=== PATIENT | male | born 1985 | race Caucasian/White ===

== ENCOUNTER 2020-05-14 11:20 | Outpatient (CLI) | payer SELFPAY ==
--- NOTE | 2020-05-14 11:24 | MR_ITS ---
WS: [id number] MRI LUMBAR SPINE NONCONTRAST HISTORY: RADICULOPATHY LUMBOSACRAL REGION COMPARISON: None available. TECHNIQUE: Sagittal and axial multisequence imaging is submitted. Normal lumbar alignment with no compression fractures or marrow edema. Mild disc desiccation and narrowing at L5-S1. No fracture or marrow edema. Conus terminates normally at L1. L1-L2: Normal. L2-L3: Normal. L3-L4: Very mild bilateral foraminal narrowing. Mild facet joint arthritis. L4-L5: Mild bilateral foraminal narrowing. No central disc protrusion. L5-S1: Central to RIGHT paracentral moderate-sized disc protrusion contacting the RIGHT S1 nerve root . Disc extends inferiorly into the lateral recess. Contact and deformity of the RIGHT lateral thecal sac. Additional osteophytic ridging. Moderate bilateral foraminal stenosis. MR/MR lumbar spine wo con* [id number] IMPRESSION: 1. Moderate RIGHT paracentral and RIGHT lateral recess disc protrusion/extrusi on at L5-S1 with contact and deformity of the RIGHT lateral thecal sac and disp lacement of the RIGHT S1 nerve root. 2. Moderate bilateral foraminal stenosis at L5-S1. 3. Mild bilateral foraminal narrowing at L3-4 and L4-5 may be due to short ped icles.
== END 2020-05-14 11:21 | disposition home or self-care (01) ==
LOC: RADSHAW 11:23
PROVIDERS: PCP Nurse Practitioner; Visit Provider Nurse Practitioner
DX: M54.17 Radiculopathy, lumbosacral region (principal); R20.2 Paresthesia of skin; M79.604 Pain in right leg; M51.27 Other intervertebral disc displacement, lumbosacral region; M48.07 Spinal stenosis, lumbosacral region
CPT/HCPCS: 72148

== ENCOUNTER 2020-07-21 16:08 | Emergency (ER) | payer SELFPAY ==
[2020-07-21] VITALS (9 sets, daily range): BP systolic 119–142; BP diastolic 68–93; PULSE 105–115; RESP 19–26; TEMP 36.7; O2SAT 94–99; BMI 24.6
--- NOTE | 2020-07-21 16:26 | W.ED.CHESTPA ---
Documented by User: Cholo Rodriguez DO 07/21/20 18:08 HPI - Chest Pain General: Chief Complaint: Chest Pain Stated Complaint: CHEST PAIN/SOB (COUGH) Time Seen by Provider: 07/21/20 16:17 History of Present Illness: HPI narrative: 35-year-old male presents to the emergency room complaining of intermittent substernal chest pain. Pain changes worse when he sits up or when he takes a deep breath also worsened by palpation. He has had this progressively worsening for the last week with increasing productive yellow sputum. He had a fever early on that resolved he denies any nausea or vomiting or diarrhea no anosmia. He has no history of any chronic respiratory illnesses unfortunately is an insulin-dependent diabetic. MD complaint: chest pain Pertinent past history: other (Diabetes mellitus) Onset (ago): week(s) (1) Timing of current episode: constant Prior episodes: Yes Onset: during rest Pain location: substernal Pain radiation: none Severity: severe Quality: heaviness Relieving factors: remaining still and other (Laying supine) Exacerbating factors: other (Sitting up or coughing or exerting) Context: recent illness Associated symptoms: Reports dyspnea and fever(s); Deny abdominal pain, diaphoresis, leg edema, nausea, palpitations, sense of impending doom, syncope or vomiting Treatment prior to arrival: none Review of Systems Const: Reports: fever(s); Denies: diaphoresis ENMT: Denies: throat pain, ear or mastoid pain, nasal discharge or nasal congestion Card: Denies: palpitations or syncope Resp: Reports: dyspnea GI: Denies: abdominal pain, nausea or vomiting : Denies: flank pain, dysuria, urinary frequency or urinary urgency Skin/Breast: Denies: rash or pruritus PFS ED PFSH: Medical History (Updated 07/21/20 @ 20:13 by Raj Gonzalez DO) Type 1 diabetes mellitus Physical Exam Const: COMMON NORMALS: no acute distress GENERAL APPEARANCE: cooperative and comfortable ORIENTATION/CONSCIOUSNESS: Yes awake, Yes oriented to person, Yes oriented to place and Yes oriented to time HENMT: COMMON NORMALS: normocephalic, atraumatic and hearing grossly normal bilaterally HEAD & SCALP: normocephalic and atraumatic Neck/C-Spine: COMMON NORMALS: no JVD Resp: COMMON NORMALS: normal respiratory effort, No retractions, No use of accessory muscles and clear to auscultation bilaterally AUSCULTATION: clear to auscultation bilaterally Cardio: COMMON NORMALS: no JVD, regular rate, regular rhythm and No murmurs present (Cardio) RATE: regular rate RHYTHM: regular rhythm GI: COMMON NORMALS: Soft to palpation and No hepatosplenomegaly present AUSCULTATION: Yes normoactive bowel sounds PALPATION: Yes Soft to palpation, No Tenderness to palpation present (GI), No Guarding due to palpation present (GI) and Yes No hepatosplenomegaly present Extremity: COMMON NORMALS: normal to inspection, capillary refill normal, no clubbing, cyanosis or edema, no calf tenderness and no pedal edema Neuro: SENSORIUM/ORIENTATION: Yes oriented to person, Yes oriented to place and Yes oriented to time Skin: COMMON NORMALS: no rashes or lesions noted GENERAL SKIN EXAM: no rashes or lesions noted Course Vital Signs: Vital signs: Vital Signs Temperature 98.1 F 07/21/20 20:45 Pulse Rate 106 H 07/21/20 20:45 Respiratory Rate 19 H 07/21/20 20:45 Blood Pressure 140/85 07/21/20 20:45 Pulse Oximetry 96 07/21/20 20:45 MDM - Chest Pain MDM Narrative: Medical decision making narrative: Care turned over to Dr. Gonzalez at change of shift see his note for final diagnosis and disposition Lab Data: Labs: Lab Results 07/21/20 07/21/20 07/21/20 Range/Units 16:30 16:30 16:30 WBC 11.3 H (4.0-10.0) 10^3/ uL RBC 3.46 L (4.1-5.3) 10^6/u L Hgb 13.6 (11.7-16.6) g/dL Hct 32.4 L (42.0-52.0) % MCV 93.6 (80-94) fL MCH 39.3 H (28.0-34.0) pg MCHC 42.0 H (30.0-36.0) g/dL RDW 13.2 (12.1-15.1) % Plt Count 349 (130-400) 10^3/c mm MPV 12.6 H (7.4-10.4) fL Neut % (Auto) 72.2 % Lymph % (Auto) 20.9 % [place] % (Auto) 5.7 % Eos % (Auto) 0.1 % Baso % (Auto) 0.7 % Neut # (Auto) 8.18 H (1.8-7.7) 10^3/u L Lymph # (Auto) 2.4 (0.8-4.8) 10^3/u L [place] # (Auto) 0.6 (0.2-0.9) 10^3/u L Eos # (Auto) 0.0 (0.0-0.8) 10^3/u L Baso # (Auto) 0.1 (0.0-0.1) 10^3/u L Nucleated RBC % (a uto) 0 % Nucleated RBCs # 0.0 /100WBC Sodium 134 L (136-145) mmol/L Potassium 4.3 (3.5-5.1) mmol/L Chloride 96 L (98-107) mmol/L Carbon Dioxide 22 (22-29) mmol/L Anion Gap 20.3 H (5-19) BUN 12 (6-20) mg/dL Creatinine 0.8 (0.7-1.2) mg/dL GFR Calculation 109.4 (90-130) mL/min Glucose 141 H (65-115) mg/dL Calculated Osmolal ity 280 L (285-295) mOsm/k g Lactic Acid 1.6 (0.5-2.2) mmol/L Calcium 10.0 (8.5-10.5) mg/dL Total Bilirubin 0.2 (0.15-1.2) mg/dL AST 15 (0-40) U/L ALT 13 (0-41) U/L Alkaline Phosphata se 136 H (40-130) IU/L Creatine Kinase 152 (39-308) U/L Troponin T Gen 5 n g/L (0-15) ng/L C-Reactive Protein 149.6 H (0.0-4.9) mg/L Total Protein 7.8 (6.6-8.7) g/dL Albumin 3.9 (3.5-5.2) g/dL Globulin 3.9 (1.3-4.6) g/dL SARS-CoV-2 Ag (Rap id) (Negative) 07/21/20 07/21/20 Range/Units 16:30 18:37 WBC (4.0-10.0) 10^3/ uL RBC (4.1-5.3) 10^6/u L Hgb (11.7-16.6) g/dL Hct (42.0-52.0) % MCV (80-94) fL MCH (28.0-34.0) pg MCHC (30.0-36.0) g/dL RDW (12.1-15.1) % Plt Count (130-400) 10^3/c mm MPV (7.4-10.4) fL Neut % (Auto) % Lymph % (Auto) % [place] % (Auto) % Eos % (Auto) % Baso % (Auto) % Neut # (Auto) (1.8-7.7) 10^3/u L Lymph # (Auto) (0.8-4.8) 10^3/u L [place] # (Auto) (0.2-0.9) 10^3/u L Eos # (Auto) (0.0-0.8) 10^3/u L Baso # (Auto) (0.0-0.1) 10^3/u L Nucleated RBC % (a uto) % Nucleated RBCs # /100WBC Sodium (136-145) mmol/L Potassium (3.5-5.1) mmol/L Chloride (98-107) mmol/L Carbon Dioxide (22-29) mmol/L Anion Gap (5-19) BUN (6-20) mg/dL Creatinine (0.7-1.2) mg/dL GFR Calculation (90-130) mL/min Glucose (65-115) mg/dL Calculated Osmolal ity (285-295) mOsm/k g Lactic Acid (0.5-2.2) mmol/L Calcium (8.5-10.5) mg/dL Total Bilirubin (0.15-1.2) mg/dL AST (0-40) U/L ALT (0-41) U/L Alkaline Phosphata se (40-130) IU/L Creatine Kinase (39-308) U/L Troponin T Gen 5 n g/L 34 H (0-15) ng/L C-Reactive Protein (0.0-4.9) mg/L Total Protein (6.6-8.7) g/dL Albumin (3.5-5.2) g/dL Globulin (1.3-4.6) g/dL SARS-CoV-2 Ag (Rap id) Negative (Negative) Discharge Plan Discharge Patient Disposition: Home Clinical Impression: Pneumonia Qualifiers: Pneumonia type: due to unspecified organism Laterality: bilateral Lung location: unspecified part of lung Qualified Code(s): J18.9 - Pneumonia, unspecified organism Condition: Stable Prescriptions: New levofloxacin 750 mg tablet 750 mg PO DAILY Qty: 7 RF: 0 albuterol sulfate 90 mcg/actuation HFA aerosol inhaler 2 inh INHALATION Q4H PRN (Reason: shortness of breath or wheezing) Qty: 6.7 RF: 1 No Action Novolin R Regular U-100 Insuln 100 unit/mL Solution See Rx Instructions .ROUTE .COMPLEX RF: 0 Novolin N NPH U-100 Insulin 25 unit SUBCUT BID@[id number] RF: 0 Discharge Orders: Discharge ED (Routine); Ordered 07/21/20 Ordered By: Raj Gonzalez Referrals: Manuel Galvez FNP [Primary Care Provider] - 4-7 days Discharge Diet: Diabetic Discharge Activity: Limit activity as instructed Patient Instructions: Pneumonia (ED) Activity Restrictions/Additional Instructions: You should continue to quarantine at home until the final results of your Covid test comes back. Antibiotics as directed. Check your blood sugar often the next 48 hours in particular, as medication we gave you may increase your blood sugar. Return for worsening shortness of breath despite treatment, fever despite 2-3 doses of antibiotics, vomiting liquids or medications, other concerning symptoms. Coding Level of Care Code ED Renovation Plant Supervisor for Chg Fwd Exam Comprehensive Documented by User: Raj Gonzalez, 07/22/20 00:31 HPI - Chest Pain General: Chief Complaint: Chest Pain Stated Complaint: CHEST PAIN/SOB (COUGH) Time Seen by Provider: 07/21/20 16:17 PFSH ED PFSH: Medical History (Updated 07/21/20 @ 20:13 by Raj Gonzalez DO) Type 1 diabetes mellitus Course Vital Signs: Vital signs: Vital Signs Temperature 98.1 F 07/21/20 20:45 Pulse Rate 106 H 07/21/20 20:45 Respiratory Rate 19 H 07/21/20 20:45 Blood Pressure 140/85 07/21/20 20:45 Pulse Oximetry 96 07/21/20 20:45 MDM - Chest Pain MDM Narrative: Medical decision making narrative: 35-year-old male checked out to me by Dr. Rodriguez at shift change. This patient is an insulin-dependent diabetic with cough that is productive and shortness of breath. No fever. His chest x-ray showed atypical infiltrates. CTA shows atypical infiltrates as well. However, these are not common types of infiltrates for COVID-19. It may be an atypical pneumonia. His white blood cell count is 11.3. He is not oxygen dependent. His heart rate is 100. Saturation is 94%. Blood pressure 124/72. He will be allowed discharge with coverage for atypical pneumonia. He will not be given steroids, as he is an insulin-dependent diabetic. He will be given 1 dose here. His rapid Covid is negative. PCR is pending. Lab Data: Labs: Lab Results 07/21/20 07/21/20 07/21/20 Range/Units 16:30 16:30 16:30 WBC 11.3 H (4.0-10.0) 10^3/ uL RBC 3.46 L (4.1-5.3) 10^6/u L Hgb 13.6 (11.7-16.6) g/dL Hct 32.4 L (42.0-52.0) % MCV 93.6 (80-94) fL MCH 39.3 H (28.0-34.0) pg MCHC 42.0 H (30.0-36.0) g/dL RDW 13.2 (12.1-15.1) % Plt Count 349 (130-400) 10^3/c mm MPV 12.6 H (7.4-10.4) fL Neut % (Auto) 72.2 % Lymph % (Auto) 20.9 % [place] % (Auto) 5.7 % Eos % (Auto) 0.1 % Baso % (Auto) 0.7 % Neut # (Auto) 8.18 H (1.8-7.7) 10^3/u L Lymph # (Auto) 2.4 (0.8-4.8) 10^3/u L [place] # (Auto) 0.6 (0.2-0.9) 10^3/u L Eos # (Auto) 0.0 (0.0-0.8) 10^3/u L Baso # (Auto) 0.1 (0.0-0.1) 10^3/u L Nucleated RBC % (a uto) 0 % Nucleated RBCs # 0.0 /100WBC Sodium 134 L (136-145) mmol/L Potassium 4.3 (3.5-5.1) mmol/L Chloride 96 L (98-107) mmol/L Carbon Dioxide 22 (22-29) mmol/L Anion Gap 20.3 H (5-19) BUN 12 (6-20) mg/dL Creatinine 0.8 (0.7-1.2) mg/dL GFR Calculation 109.4 (90-130) mL/min Glucose 141 H (65-115) mg/dL Calculated Osmolal ity 280 L (285-295) mOsm/k g Lactic Acid 1.6 (0.5-2.2) mmol/L Calcium 10.0 (8.5-10.5) mg/dL Total Bilirubin 0.2 (0.15-1.2) mg/dL AST 15 (0-40) U/L ALT 13 (0-41) U/L Alkaline Phosphata se 136 H (40-130) IU/L Creatine Kinase 152 (39-308) U/L Troponin T Gen 5 n g/L (0-15) ng/L C-Reactive Protein 149.6 H (0.0-4.9) mg/L Total Protein 7.8 (6.6-8.7) g/dL Albumin 3.9 (3.5-5.2) g/dL Globulin 3.9 (1.3-4.6) g/dL SARS-CoV-2 Ag (Rap id) (Negative) 07/21/20 07/21/20 Range/Units 16:30 18:37 WBC (4.0-10.0) 10^3/ uL RBC (4.1-5.3) 10^6/u L Hgb (11.7-16.6) g/dL Hct (42.0-52.0) % MCV (80-94) fL MCH (28.0-34.0) pg MCHC (30.0-36.0) g/dL RDW (12.1-15.1) % Plt Count (130-400) 10^3/c mm MPV (7.4-10.4) fL Neut % (Auto) % Lymph % (Auto) % [place] % (Auto) % Eos % (Auto) % Baso % (Auto) % Neut # (Auto) (1.8-7.7) 10^3/u L Lymph # (Auto) (0.8-4.8) 10^3/u L [place] # (Auto) (0.2-0.9) 10^3/u L Eos # (Auto) (0.0-0.8) 10^3/u L Baso # (Auto) (0.0-0.1) 10^3/u L Nucleated RBC % (a uto) % Nucleated RBCs # /100WBC Sodium (136-145) mmol/L Potassium (3.5-5.1) mmol/L Chloride (98-107) mmol/L Carbon Dioxide (22-29) mmol/L Anion Gap (5-19) BUN (6-20) mg/dL Creatinine (0.7-1.2) mg/dL GFR Calculation (90-130) mL/min Glucose (65-115) mg/dL Calculated Osmolal ity (285-295) mOsm/k g Lactic Acid (0.5-2.2) mmol/L Calcium (8.5-10.5) mg/dL Total Bilirubin (0.15-1.2) mg/dL AST (0-40) U/L ALT (0-41) U/L Alkaline Phosphata se (40-130) IU/L Creatine Kinase (39-308) U/L Troponin T Gen 5 n g/L 34 H (0-15) ng/L C-Reactive Protein (0.0-4.9) mg/L Total Protein (6.6-8.7) g/dL Albumin (3.5-5.2) g/dL Globulin (1.3-4.6) g/dL SARS-CoV-2 Ag (Rap id) Negative (Negative) Discharge Plan Discharge Patient Disposition: Home Clinical Impression: Pneumonia Qualifiers: Pneumonia type: due to unspecified organism Laterality: bilateral Lung location: unspecified part of lung Qualified Code(s): J18.9 - Pneumonia, unspecified organism Condition: Stable Prescriptions: New levofloxacin 750 mg tablet 750 mg PO DAILY Qty: 7 RF: 0 albuterol sulfate 90 mcg/actuation HFA aerosol inhaler 2 inh INHALATION Q4H PRN (Reason: shortness of breath or wheezing) Qty: 6.7 RF: 1 No Action Novolin R Regular U-100 Insuln 100 unit/mL Solution See Rx Instructions .ROUTE .COMPLEX RF: 0 Novolin N NPH U-100 Insulin 25 unit SUBCUT BID@ RF: 0 Discharge Orders: Discharge ED (Routine); Ordered 07/21/20 Ordered By: Raj Gonzalez Referrals: Manuel Galvez FNP [Primary Care Provider] - 4-7 days Discharge Diet: Diabetic Discharge Activity: Limit activity as instructed Patient Instructions: Pneumonia (ED) Activity Restrictions/Additional Instructions: You should continue to quarantine at home until the final results of your Covid test comes back. Antibiotics as directed. Check your blood sugar often the next 48 hours in particular, as medication we gave you may increase your blood sugar. Return for worsening shortness of breath despite treatment, fever despite 2-3 doses of antibiotics, vomiting liquids or medications, other concerning symptoms. Coding Level of Care Code ED Renovation Plant Supervisor for Adriana Fwjay Exam Comprehensive
--- NOTE | 2020-07-21 16:28 | XRR_ITS ---
PROCEDURE INFORMATION: Exam: XR Chest, 1 View Exam date and time: 07/21/2020 4:30 PM Age: 35 years old Clinical indication: Dyspnea TECHNIQUE: Imaging protocol: XR of the chest Views: 1 view. COMPARISON: No relevant prior studies available. FINDINGS: Lungs: Mild nonspecific ground-glass densities at the lung bases, right worse than left. The upper lungs are clear. Pleural space: No pleural effusion. No pneumothorax. Heart/Mediastinum: No cardiomegaly. Bones/joints: Unremarkable. XR/XR chest 1V portable [id number] IMPRESSION: 1. Mild nonspecific ground-glass densities at the lung bases, right worse than left. 2. The upper lungs are clear.
[2020-07-21 17:05] LABS: Lactic Sepsis W/Reflex 1.6 mmol/L (0.5-2.2)
[2020-07-21 17:06] LABS: Basophils # 0.1 10^3/uL (0.0-0.1); Basophils % 0.7 %; Eosinophils % 0.1 %; Hematocrit 32.4 % (42.0-52.0); Hemoglobin 13.6 g/dL (11.7-16.6); Lymphocytes # 2.4 10^3/uL (0.8-4.8); Lymphocytes % 20.9 %; Mean Corpuscular Hemoglobin 39.3 pg (28.0-34.0); Mean Corpuscular Volume 93.6 fL (80-94); Mean Platelet Volume 12.6 fL (7.4-10.4); Monocytes # 0.6 10^3/uL (0.2-0.9); Monocytes % 5.7 %; Neutrophils # 8.18 10^3/uL (1.8-7.7); Neutrophils % 72.2 %; Nucleated Red Blood Cells % 0 %; Platelet Count 349 10^3/cmm (130-400); Positive C 1; Red Blood Count 3.46 10^6/uL (4.1-5.3); Red Cell Distribution Width 13.2 % (12.1-15.1); White Blood Count 11.3 10^3/uL (4.0-10.0)
[2020-07-21 17:10] LABS: Alanine Aminotransferase 13 U/L (0-41); Albumin Level 3.9 g/dL (3.5-5.2); Alkaline Phosphatase 136 IU/L (40-130); Anion Gap 20.3 (5-19); Aspartate Amino Transferase 15 U/L (0-40); Blood Urea Nitrogen 12 mg/dL (6-20); C Reactive Protein 149.6 mg/L (0.0-4.9); Carbon Dioxide 22 mmol/L (22-29); Chloride 96 mmol/L (98-107); Creatine Phosphokinase 152 U/L (39-308); Globulin 3.9 g/dL (1.3-4.6); Glomerular Filtration Rate 109.4 mL/min (90-130); Glucose 141 mg/dL (65-115); Osmolality Calculated 280 mOsm/kg (285-295); Potassium 4.3 mmol/L (3.5-5.1); Sodium 134 mmol/L (136-145); Total Bilirubin 0.2 mg/dL (0.15-1.2); Total Protein 7.8 g/dL (6.6-8.7)
--- NOTE | 2020-07-21 18:06 | CTR_ITS ---
PROCEDURE INFORMATION: Exam: CT Angiography Chest With Contrast Exam date and time: 07/21/2020 6:10 PM Age: 35 years old Clinical indication: Sternal or substernal pain; Patient HX: C/O intermittent substernal cp w cough; Additional info: Chest pain TECHNIQUE: Imaging protocol: Computed tomographic angiography of the chest with intravenous contrast. 3D rendering (Not supervised by radiologist): MIP and/or 3D reconstructed images were created by the technologist. Radiation optimization: All CT scans at this facility use at least one of these dose optimization techniques: automated exposure control; mA and/or kV adjustment per patient size (includes targeted exams where dose is matched to clinical indication); or iterative reconstruction. Contrast material: OMNI 350; Contrast volume: 60 ml; Contrast route: INTRAVENOUS (IV); COMPARISON: CR (CHEST, ) 07/21/2020 4:33 PM RADIATION DOSE METRICS: Total DLP (mGy-cm): 537.72 FINDINGS: Pulmonary arteries: Pulmonary arteries are well opacified. Pulmonary arteries are normal in caliber. No filling defects are demonstrated. No evidence of pulmonary embolism. Aorta: The thoracic aorta appears unremarkable. No aneurysm or dissection demonstrated. Lungs: Mild bronchiectasis in the lower lobes. Nonspecific diffuse tree-in-bud infiltrates seen in the right middle lobe and bilateral lower lobes. Pleural space: No pneumothorax. No pleural effusion. Heart: No cardiomegaly. No pericardial effusion. Lymph nodes: Mild nonspecific mediastinal and bilateral hilar nodes. Mediastinal nodes measure up to 12 mm short axis. Hilar nodes measure up to 13 mm in length. Bones/joints: No fracture or other acute osseous abnormality. Soft tissues: The soft tissues appear unremarkable. CT/CT angio chest PE protcl [id number] IMPRESSION: 1. No evidence of pulmonary embolism. 2. No evidence of aortic dissection. 3. Mild bronchiectasis in the lower lobes. Nonspecific diffuse tree-in-bud infiltrates seen in the right middle lobe and bilateral lower lobes. Findings suggest nonspecific acute lower respiratory infection (bronchiolitis versus nonspecific viral versus mycoplasma pneumonia. Imaging features are not typical of COVID-19 pneumonia). Other infectious and noninfectious etiologies can cause a similar appearance. 4. Mild nonspecific mediastinal and bilateral hilar nodes. Radiation Dose CTDIVOL = (mGy): DLP = 537.72 (mGy-cm)
--- NOTE | 2020-07-21 18:24 | ECG_ITS ---
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 Measurements Intervals [place] Rate: 109 P: 73 GA: 152 QRS: 80 QRSD: 95 T: 60 QT: 312 QTc: 421 Interpretive Statements SINUS TACHYCARDIA POSSIBLE LEFT ATRIAL ENLARGEMENT [-0.1mV P WAVE IN V1/V2] No previous ECG available for comparison Electronically Signed On 07-21-2020 21:56:53 SUPERVISOR SL[employer]ING [employer]PARTMENT by Promise Whalen M.D. [email or web address], [id number] [email or web address]
[2020-07-21] MEDS: iohexol 350 mg/mL 100 mL Btl IV (18:33)
[2020-07-21 19:18] LABS: SARS Covid-2 Antigen Negative (Negative)
[2020-07-21 19:33] LABS: Troponin T (5th) Once 34 ng/L (0-15)
[2020-07-21] MEDS: dexamethasone 4 mg/mL INJ 6 MG IVP (20:18)
[2020-07-21] MEDS: levoFLOXacin 750 mg Tablet PO (20:18)
[2020-07-23 15:34] LABS: Coronavirus Test Green County Not Detected
== END 2020-07-21 20:45 | disposition home or self-care (01) ==
PROVIDERS: Family Medicine; Emergency Provider Emergency Medicine; PCP Nurse Practitioner
DX: J18.9 Pneumonia, unspecified organism (principal); Z79.4 Long term (current) use of insulin; E10.9 Type 1 diabetes mellitus without complications
CPT/HCPCS: 12345; 36415; 71045; 71275; 80053; 82550; 83605; 84484; 85025; 86140; 87070; 87205; 87426; 87635; 93005; 96374; 99282; 99284; J1100; Q9967

== ENCOUNTER 2024-03-06 09:39 | Emergency (ER) | payer OTHER, SELFPAY ==
[2024-03-06 09:50] VITALS: BP 158/94; PULSE 100; RESP 18; TEMP 36.7; O2SAT 98; BMI 23.0
--- NOTE | 2024-03-06 10:10 | ED_ITS ---
HPI - Animal Bite 2 General: Chief Complaint: Animal Bite Stated Complaint: Possible spider bite right leg Time Seen by Provider: 03/06/24 09:57 Source: patient Mode of arrival: ambulatory Limitations: no limitations History of Present Illness: This patient made his way to the emergency department today because he is concerned about what he thinks is likely spider bites to his right lower leg as well as in the right hip area. He states at work they were cleaning out an area that had a lot of spiders present and he is almost positive that spider likely got under his close and bit him. He states he noted the area that he suspected on his right leg and right hip approximately 3 days ago. He has had increasing redness around the areas particularly 1 on his right lower leg. He states it is sore and tender particular when he walks. He denies any fevers or chills. He denies any other constitutional complaints. He is normally in good health he is an insulin requiring diabetic. He states his sugars have been well-controlled. He denies any systemic effects such as difficulties breathing, swallowing difficulties, itching or other systemic rashes. He states his tetanus status is up-to-date. He just recently had a tetanus immunization. Associated symptoms: Deny chills or fever(s) Review of Systems 2 Const: Denies: fever(s) or chills ENMT: Denies: throat pain, odynophagia, nasal discharge or nasal congestion Card: Denies: palpitations Resp: Denies: wheezing or stridor GI: Denies: abdominal pain, nausea, vomiting or diarrhea Musc: Reports: extremity pain; Denies: neck pain Skin/Breast: Reports: pruritus and erythema Neuro: Denies: numbness in extremities or weakness in extremities Manuelito/Lymph: Denies: easy bruising or easy bleeding [facility] ED 2 PFSH: Medical History (Updated 03/06/24 @ 10:18 by Giuseppe Moeller DO) Type 1 diabetes mellitus Physical Exam 2 Narrative: EXAM NARRATIVE: He is comfortable relaxed and appears to be in no acute distress. Const: COMMON NORMALS: no acute distress, average body habitus, patient oriented x3 and alert GENERAL APPEARANCE: cooperative and comfortable HENMT: COMMON NORMALS: normocephalic and moist oral mucous membranes HEAD & SCALP: normocephalic Eye: COMMON NORMALS: Equal, round and reactive pupils present PUPIL: Yes Equal, round and reactive pupils present Neck/C-Spine: COMMON NORMALS: full ROM Resp: COMMON NORMALS: normal respiratory effort EFFORT & INSPECTION: Yes able to speak in complete sentences, No stridor and No audible wheezes Cardio: COMMON NORMALS: regular rate and Peripheral pulses 2+ throughout R ATE: regular rate PERIPHERAL PULSES: Peripheral pulses 2+ throughout Back/Pelvis: COMMON NORMALS: thoraco-lumbar ROM normal Extremity: COMMON NORMALS: full ROM, capillary refill normal, no calf tenderness and no pedal edema OTHER: On the right lower leg and the skin lesion as described he has some local tenderness. There is no proximal lymphangitis or lymphadenopathy. He has normal range of motion in all joints. EXTREMITY IMAGE (FRONT): 1. Area of likely envenomation with an eschar measuring approximately 5 to 6 mm in diameter. There is surrounding erythema with a radius of approximately 2.5 cm circumferentially 2. Another likely envenomation site. Th ere is a papule measuring approximately 5 mm in total diameter. No surrounding erythema. No significant eschar noted. Neuro: COMMON NORMALS: patient oriented x3, moves all extremities and no focal motor deficits SENSORIUM/ORIENTATION: Yes alert Skin: COMMON NORMALS: turgor normal and no petechiae NARRATIVE SKIN EXAM: Skin exam is remarkable for the 2 lesions noted in the extremity examination first lesion on the right lateral upper leg with central eschar with surrounding erythema no proximal erythema or lymphangitis. Second lesion is just inferior to the greater trochanter region of the right hip. It is a approximately 5 mm papule without any erythema. GENERAL SKIN EXAM: turgor normal Course 2 Vital Signs: Vital signs: Vital Signs Temperature 98.0 F 03/06/24 09:50 Pulse Rate 100 03/06/24 09:50 Respiratory Rate 18 03/06/24 09:50 Blood Pressure 158/94 03/06/24 09:50 Pulse Oximetry 98 03/06/24 09:50 Oxygen Delivery Me thod Room Air 03/06/24 09:50 MDM - Animal Bite Medical Decision Making Patient presents as noted in the HPI. Given his history of certainly clinically consistent with likely spider envenomation most likely brown recluse particularly the 1 on his right lower leg. No evidence of systemic reaction or other concerns for condition such as anaphylaxis etc. Likely most of his tenderness and erythema is from histamine release and inflammation locally from the envenomation however because of his diabetes there is concerned about potential for possible early cellulitis. Did review the fact that less is more with respect to brown recluse bites and that we do not normally open nose or drain nose unless there is a contained abscess which there is no fluctuance or other findings today to suggest that condition. Because of his insulin requiring diabetes and a concern about possible early cellulitis given this is now over 3 days post envenomation we will give him a prophylactic course of cephalexin. Will also provide a 10 mg Decadron injection to help with his reducing inflammation. I did review the fact that this may cause his sugars to have a temporary bump which she acknowledged. We also advised ibuprofen or Aleve [id number] for pain control. We also discussed and reviewed return precautions in the detail regarding increasing redness pain fevers or other systemic symptoms suggestive of worsening infection. No radiology studies performed this visit Discharge Plan Discharge Patient Disposition: Home Clinical Impression: Arthropod bite Condition: Stable Prescriptions: New cephalexin 500 mg capsule 500 mg PO TID 7 Days Qty: 21 0RF No Action Novolin R Regular U100 Insulin 100 unit/mL Solution See Rx Instructions .ROUTE .COMPLEX Rx Instructions: sliding scale see pharmacy comments Novolin N NPH U-100 Insulin 25 unit SUBCUT BID@0730,1999 levofloxacin 750 mg tablet 750 mg PO DAILY Qty: 7 0RF albuterol sulfate 90 mcg/actuation HFA aerosol inhaler 2 inh INHALATION Q4H PRN (Reason: shortness of breath or wheezing) Qty: 6.7 1RF Discharge Orders: Discharge ED (Routine); Ordered 03/06/24 Ordered By: Giuseppe Moeller Discharge Diet: Usual diet Discharge Activity: Increase activity as tolerated Patient Instructions: Opioid Safety, Pain Management, Brown Recluse Spider Bite (ED) Activity Restrictions/Additional Instructions: As we discussed is important to keep the areas of concern clean with soap and water and cover with a bandage when you are wearing closed. We have provided an antibiotic to help reduce the risk of increasing infection. If you develop concerning symptoms such as fever, increasing redness, joint pain difficulty breathing swallowing or other concerns that your condition is not improving return to this or the nearest emergency department for reevaluation. Coding Level of Care Code ED Underwriting Sales Representative for Adriana Condon
[2024-03-06] MEDS: dexamethasone 10 mg/mL INJ IM (10:22)
[2024-03-06] MEDS: cephALEXin 500 mg Capsule PO (10:22)
[2024-03-06 10:44] VITALS: BP 154/101; PULSE 92; RESP 18; TEMP 36.7; O2SAT 97
== END 2024-03-06 10:46 | disposition home or self-care (01) ==
PROVIDERS: Emergency Provider Emergency Medicine
DX: T63.331A Toxic effect of venom of brown recluse spider, accidental (unintentional), initial encounter (principal); E10.9 Type 1 diabetes mellitus without complications
CPT/HCPCS: 96372; 99284; J1100

== ENCOUNTER 2024-08-29 13:43 | Outpatient (CLI) | payer OTHER, SELFPAY ==
--- NOTE | 2024-08-29 13:47 | XR_ITS ---
WS: [id number] Exam: XR shoulder RT min 2V* [id number] Date/Time of Exam: 08/29/2024 1:47 PM Reason For Exam: PAIN IN RIGHT SHOULDER No acute fracture. Normal soft tissues. The joints are preserved. XR/XR shoulder RT min 2V* [id number] IMPRESSION: 1. Negative RIGHT shoulder.
== END 2024-08-29 13:44 | disposition home or self-care (01) ==
LOC: RAD 13:44
PROVIDERS: PCP Family Medicine; Visit Provider Family Medicine
DX: M25.511 Pain in right shoulder (principal)
CPT/HCPCS: 73030

== ENCOUNTER 2024-09-21 18:59 | Inpatient (IN) | payer OTHER, MEDICAID, SELFPAY ==
[2024-09-21] VITALS (9 sets, daily range): BP systolic 154–175; BP diastolic 90–95; PULSE 91–110; RESP 16–18; TEMP 36.6–36.8; O2SAT 93–99; BMI 26.0
--- NOTE | 2024-09-21 19:26 | XRR_ITS ---
PROCEDURE INFORMATION: Exam: XR Left Elbow Exam date and time: 09/21/2024 7:45 PM Age: 39 years old Clinical indication: Swelling; Elbow; Left; Additional info: Infection, red/swollen/warm joint TECHNIQUE: Imaging protocol: Radiologic exam of the left elbow. Views: 3 or more views. COMPARISON: No relevant prior studies available. FINDINGS: Bones/joints: No visible effusion. The bones are intact. Soft tissues: Posterior swelling in the elbow. Small radiopaque foreign body or calcification in the upper arm. XR/XR elbow LT min 3V* [id number] IMPRESSION: No acute skeletal findings.
[2024-09-21] MEDS: morphine 4 mg/mL SDV 1 mL IVP ×2 (19:41→22:08)
[2024-09-21 19:45] LABS: Basophils % 0.3 %; Eosinophils # 0.1 10^3/uL (0.0-0.8); Eosinophils % 0.6 %; Hematocrit 35.8 % (37-53); Lymphocytes # 1.9 10^3/uL (0.8-4.8); Lymphocytes % 14.3 %; Mean Corpuscular Hemoglobin 28.9 pg (27-33); Mean Corpuscular Volume 87.7 fl (82-101); Mean Platelet Volume 11.4 fL (7.4-10.4); Monocytes # 0.6 10^3/uL (0.2-0.9); Monocytes % 4.8 %; Neutrophils # 10.44 10^3/uL (1.8-7.7); Neutrophils % 79.7 %; Nucleated Red Blood Cells % 0 %; Platelet Count 291 10^3/cmm (157-399); Red Blood Count 4.08 10^6/uL (3.85-5.65); Red Cell Distribution Width 13.2 % (12.1-15.1); White Blood Count 13.11 10^3/uL (3.29-11.43)
--- NOTE | 2024-09-21 19:55 | ED_ITS ---
HPI - Wound/Laceration 2 General: Chief Complaint: Wound/Laceration Stated Complaint: pain and inflamation.left elbow into muscle Time Seen by Provider: 09/21/24 19:07 Source: patient Mode of arrival: ambulatory Limitations: no limitations History of Present Illness: Patient is a 39-year-old male who presents the emergency department complaining of left upper extremity pain for the past few days. States that he was seen in the emergency department elsewhere on Thursday for pain related to lesion over his left olecranon, notes he was given IV antibiotics there and started on doxycycline. States that the pain, swelling, and redness have only gotten worse to his left upper extremity and now has extended into his hand which is swollen. He took ibuprofen before coming in and states that this did help the pain a bit. Denies any fever, nausea/vomiting, or other systemic signs of illness. He does note that his elbow start to feel warm to the touch and range of motion is difficult secondary to the pain. Currently tachycardic, rest of vitals unremarkable other than mildly elevated blood pressure. This patient is diabetic. Onset (ago): day(s) Extremity Location: Left: elbow Context: accidental Associated symptoms: Denies chills, fever(s), nausea or vomiting Treatments prior to arrival: NSAIDS and other (Antibiotics) Related Data Home Medications ?Medication ?Instructions ?Recorded ?Confirmed Novolin N NPH U-100 Insulin 25 unit SUBCUT BID@0730,20 00 07/21/20 07/21/20 insulin regular human 100 unit/mL See Rx Instructions .Route .COMPLEX 07/21/20 07/21/20 injection solution (Novolin R Regular U-100 Insulin) Previous Rx's ?Medication ?Instructions ?Recorded albuterol sulfate 90 mcg/actuation 2 inh inhalation Q4 H PRN shortness 07/21/20 aerosol inhaler of breath or wheezing #6.7 g silvia levofloxacin 750 mg tablet 750 mg PO DAILY #7 tabs Allergies Allergy/AdvReac Type Severity Reaction Status Date / Time No Known Allergies Allergy Verified 09/21/24 19:08 Review of Systems 2 General: Reports: 10 or more systems reviewed and unremarkable except in HPI and below Const: Denies: fever(s) or chills Card: Denies: chest pain Resp: Denies: dyspnea or productive cough GI: Denies: abdominal pain, nausea, vomiting or diarrhea : Denies: flank pain Musc: Reports: extremity pain, joint pain, joint swelling, joint redness, joint warmth and limited range of motion; Denies: neck pain, back pain, extremity swelling or muscle weakness Skin/Breast: Denies: rash Neuro: Denies: headache(s), numbness in extremities or weakness in extremities PFSH ED 2 PFSH: Medical History Type 1 diabetes mellitus Physical Exam 2 Const: COMMON NORMALS: no acute distress, patient oriented x3, no limitations, healthy appearing, alert and well nourished HENMT: COMMON NORMALS: normocephalic and atraumatic HEAD & SCALP: n ormocephalic and atraumatic Neck/C-Spine: COMMON NORMALS: full ROM, supple and no meningeal signs Resp: COMMON NORMALS: normal respiratory effort, No use of accessory muscles and clear to auscultation bilaterally AUSCULTATION: clear to auscultation bilaterally Cardio: COMMON NORMALS: regular rate and regular rhythm RATE: regular rate RHYTHM: regular rhythm Extremity: NARRATIVE EXTREMITY EXAM: Erythema noted to left upper extremity along the olecranon extending down the left forearm. There is swelling and warmth noted to this area, swelling extends down to the hand. Radial pulse palpable. Limited range of motion secondary to pain. Neuro: COMMON NORMALS: patient oriented x3, moves all extremities, no focal motor deficits and no sensory deficits noted SENSORIUM/ORIENTATION: Yes alert MENINGEAL SIGNS: Yes no meningeal signs Skin: COMMON NORMALS: no rashes or lesions noted GENERAL SKIN EXAM: no rashes or lesions noted Course 2 Vital Signs: Vital signs: Vital Signs Temperature 97.8 F 09/21/24 19:02 Pulse Rate 101 H 09/21/24 20:00 Respiratory Rate 18 09/21/24 19:41 Blood Pressure 163/93 09/21/24 20:00 Pulse Oximetry 93 09/21/24 20:00 Oxygen Delivery Me thod Room Air 09/21/24 20:00 MDM - Wound/Laceration Medical Decision Making Patient presented for worsening redness, swelling, and pain to left elbow after being seen in the emergency department on Thursday at separate location. Was started on doxycycline twice a day but this has been reportedly not working. Arrives with swelling redness and warmth at left elbow with extension down to the hand. Has been tachycardic throughout ED stay, otherwise no fevers and no systemic signs of illness. White count mildly elevated at 13, though his ESR was 52 and CRP 350. Lactic was within normal limits. Was started on sepsis bolus of fluids as well as Vanco and Zosyn. Spoke with Dr. Simental, hospitalist, who accepts patient to the hospital. Also spoke with Dr. Baez, on-call orthopedist, who would consult the patient in case this is septic joint that needs washout. Also recommends obtaining MRI at this time. His x-ray was unremarkable for any bony extension. Informed patient of plan for admission, all questions and concerns were addressed at this time. Dr. Helm putting in admit orders. Patient stating his pain is under control, was given morphine here. Lab Data 09/21/24 19:37 09/21/24 19:37 Radiology Impressions Elbow X-Ray 09/21/24 19:26 IMPRESSION: No acute skeletal findings. Laboratory Results WBC 13.11 10^3/uL (3.29-11.43) H 09/21/24 19:37 RBC 4.08 10^6/uL (3.85-5.65) 09/21/24 19:37 Hgb 11.80 g/dL (11.27-16.99) 09/21/24 19:37 Hct 35.8 % (37-53) L 09/21/24 19:37 MCV 87.7 fl (82-101) 09/21/24 19:37 MCH 28.9 pg (27-33) 09/21/24 19:37 MCHC 33.0 g/dL (30-55) 09/21/24 19:37 RDW 13.2 % (12.1-15.1) 09/21/24 19:37 Plt Count 291 10^3/cmm (157-399) 09/21/24 19:37 MPV 11.4 fL (7.4-10.4) H 09/21/24 19:37 Neut % (Auto) 79.7 % 09/21/24 19:37 Lymph % (Auto) 14.3 % 09/21/24 19:37 [place] % (Auto) 4.8 % 09/21/24 19:37 Eos % (Auto) 0.6 % 09/21/24 19:37 Baso % (Auto) 0.3 % 09/21/24 19:37 Neut # (Auto) 10.44 10^3/uL (1.8-7.7) H 09/21/24 19:37 Lymph # (Auto) 1.9 10^3/uL (0.8-4.8) 09/21/24 19:37 [place] # (Auto) 0.6 10^3/uL (0.2-0.9) 09/21/24 19:37 Eos # (Auto) 0.1 10^3/uL (0.0-0.8) 09/21/24 19:37 Baso # (Auto) 0.0 10^3/uL (0.0-0.1) 09/21/24 19:37 Nucleated RBC % (auto) 0 % 09/21/24 19: Nucleated RBCs # 0.0 /100WBC 09/21/24 19:37 ESR 52 mm/hr (0-10) H 09/21/24 19:37 Sodium 134 mmol/L (136-145) L 09/21/24 19:37 Potassium 3.9 mmol/L (3.5-5.1) 09/21/24 19:37 Chloride 95 mmol/L (98-107) L 09/21/24 19:37 Carbon Dioxide 25 mmol/L (22-29) 09/21/24 19:37 Anion Gap 17.9 (5-19) 09/21/24 19:37 BUN 17 mg/dL (6-20) 09/21/24 19:37 Creatinine 1.1 mg/dL (0.7-1.2) 09/21/24 19:37 GFR Calculation 74.1 mL/min (90-130) L 09/21/24 19:37 Glucose 354 mg/dL (65-115) H 09/21/24 19:37 Calculated Osmolality 294 mOsm/kg (285-295) 09/21/24 19:37 Lactic Acid 1.4 mmol/L (0.5-2.2) 09/21/24 19:37 Calcium 9.7 mg/dL (8.5-10.5) 09/21/24 19:37 Total Bilirubin 0.3 mg/dL (0.15-1.2) 09/21/24 19:37 AST 10 U/L (0-40) 09/21/24 19:37 ALT 12 U/L (0-41) 09/21/24 19:37 Alkaline Phosphatase 162 U/L (40-130) H 09/21/24 19:37 C-Reactive Protein 344.2 mg/L (0.0-4.9) H 09/21/24 19:37 Total Protein 7.5 g/dL (6.6-8.7) 09/21/24 19:37 Albumin 3.8 g/dL (3.5-5.2) 09/21/24 19:37 Globulin 3.7 g/dL (1.3-4.6) 09/21/24 19:37 All radiology interpretation(s) finalized by discharge Discharge Plan Discharge Patient Disposition: Admitted As Inpatient Clinical Impression: Cellulitis of left elbow Condition: Stable Coding Level of Care Code ED [employer] Extension Specialist for Adriana Condon
[2024-09-21 20:02] LABS: Lactic Sepsis W/Reflex 1.4 mmol/L (0.5-2.2)
[2024-09-21 20:03] LABS: Alanine Aminotransferase 12 U/L (0-41); Albumin Level 3.8 g/dL (3.5-5.2); Alkaline Phosphatase 162 U/L (40-130); Anion Gap 17.9 (5-19); Aspartate Amino Transferase 10 U/L (0-40); Blood Urea Nitrogen 17 mg/dL (6-20); C Reactive Protein 344.2 mg/L (0.0-4.9); Calcium 9.7 mg/dL (8.5-10.5); Carbon Dioxide 25 mmol/L (22-29); Chloride 95 mmol/L (98-107); Creatinine Clr Calc Pharmacy 99.8848; Globulin 3.7 g/dL (1.3-4.6); Glomerular Filtration Rate 74.1 mL/min (90-130); Glucose 354 mg/dL (65-115); Osmolality Calculated 294 mOsm/kg (285-295); Potassium 3.9 mmol/L (3.5-5.1); Sodium 134 mmol/L (136-145); Total Bilirubin 0.3 mg/dL (0.15-1.2); Total Protein 7.5 g/dL (6.6-8.7)
[2024-09-21 20:22] LABS: Erythrocyte Sedimentation Rate 52 mm/hr (0-10)
[2024-09-21] MEDS: piperacillin-tazobactam 3.375 GM in sodium chloride 0.9% (plus) 50 ML IV (21:06)
--- NOTE | 2024-09-21 21:14 | PC.NURSE ---
report called to [facility]. room dirty at this time.
[2024-09-21] MEDS: VANCOMYCIN ADD-Vantage 1,000 MG in 0.9% NaCl ADD-Vantage 250 ML 250 MG IV (22:06)
--- NOTE | 2024-09-21 22:17 | P.HP_ITS ---
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, physically very active, does not smoke or drink alcohol presented with chief complaint of left elbow pain and swelling which she started noticing on Thursday morning, patient is stating that he woke up like this, he was evaluated at [facility] he was given ceftriaxone IV and was discharged on doxycycline, at home he start experiencing rigors, chills with sweating that prompted his visit to the ER today, he is showing sign of sepsis with tachycardia tachypnea and tachycardia and high leukocyte count with high inflammatory markers, he has extensive swelling from elbow all the way down to his left wrist and dorsum of the hand, patient is stating that his elbow swelling has gone down. Elbow has a central tisha which could possibly be a spider bite. Patient is not endorsing fever. Endorsing pain on minimal movement. He has been given vancomycin and Zosyn along septic bolus, Dr. Baez has been notified he will evaluate the patient in the morning and he has requested MRI of left elbow Review of Systems 2 Const: Reports: chills; Denies: fever(s) Eyes: Denies: change in vision ENMT: Denies: throat pain Card: Denies: chest pain Resp: Denies: dyspnea GI: Denies: abdominal pain Musc: Reports: extremity pain, extremity swelling, joint pain, joint swelling, joint redness, joint warmth, joint stiffness and limited range of motion Medications/Allergies Home Medications ?Medication ?Instructions ?Recorded ?Confirmed ?Last Taken ?Type Novolin N NPH U-100 Insulin 25 unit SUBCUT BID@0730,20 00 07/21/20 07/21/20 07/21/20 History albuterol sulfate 90 mcg/actuation 2 inh inhalation Q4 H PRN shortness 07/21/20 Unknown Rx aerosol inhaler of breath or wheezing #6.7 g silvia insulin regular human 100 unit/mL See Rx Instructions .Route .COMPLEX 07/21/20 07/21/20 07/20/20 History injection solution (Novolin R Regular U-100 Insulin) levofloxacin 750 mg tablet 750 mg PO DAILY #7 tabs Unknown Rx Allergies Allergy/AdvReac Type Severity Reaction Status Date / Time No Known Allergies Allergy Verified 09/21/24 19:08 PFSH Acute 2 PFSH: Medical History Type 1 diabetes mellitus Vitals/I&O/Wt Last Vital Signs Temp 97.8 F 09/21/24 19:02 Pulse 100 09/21/24 21:30 Resp 18 09/21/24 19:41 BP 175/95 09/21/24 21:30 Pulse Ox 97 09/21/24 21:30 O2 Del Method Room Air 09/21/24 21:30 09/21/24 09/21/24 09/21/24 06:59 14:59 22:59 Intake Total 2594.66 / 2594.66 Balance 2594.66 / 2594.66 Weight last 48 hrs Weight 84.822 kg Physical Exam 2 Narrative: Awake and alert No active skin mottling GCS 15 Refill less than 3 seconds Pleasant and cooperative GCS 15 NIH 0 tachycardia Tachypnea Tachycardia Sinus rhythm S1, S2 Pleasant and cooperative Left elbow swelling extending all the way down towards his left dorsum of the hand No neurovascular compromise Tender to palpate Tender lymphadenopathy left axillary area Pulses intact Elbow area has central bite tisha as well without any eschar or necrosis Nonpurulent cellulitis of elbow Abdomen soft No audible stridor or wheezing Sepsis: Is patient septic: Yes Focused sepsis exam performed: Yes F ocused sepsis exam: Capillary refill less than 3 seconds Patient is tachycardic heart rate 110 Tachypnea No skin mottling Date exam was performed: 09/21/24 Time exam was performed: 22:21 Data 09/21/24 19:37 09/21/24 19:37 Micro: Microbiology 09/21/24 20:55 Blood Culture - Preliminary Blood SPECIMEN COLLECTED 09/21/24 21:00 Blood Culture - Preliminary Blood SPECIMEN COLLECTED A&P Assessment and plan (1) Type 1 diabetes mellitus: (2) Cellulitis of left elbow: (3) Sepsis: Plan Sepsis Failed outpatient treatment Source seems to be progressive cellulitis/spider bite Criteria met with tachypnea tachycardia leukocytosis rule out septic joint Dr. Baez requested MRI of the elbow Patient has been given septic bolus ,vancomycin and Zosyn Patient is insulin-dependent diabetic considering immunocompromise state I will continue broad-spectrum antibiotics For pain management will use morphine, anti-inflammatory ketorolac for now as his creatinine is normal Dr. Baez will evaluate the patient in the morning Insulin-dependent diabetic Continue IV fluids along insulin with sliding scale Consistent carb diet DVT prophylaxis on board Full code PDMP PDMP Reviewed: Not Reviewed Attestations 2 Medical Necessity Statement*: More than 2 midnights for management & evaluation of sepsis cellulitis of left elbow Coding Level of Care Code Acute Code for [facility] Diagnoses Type 1 diabetes mellitus E10.9 Cellulitis of left elbow L03.114 Sepsis A41.9
[2024-09-21 22:54] LABS: Procalcitonin 0.41 ng/mL (0-0.5)
[2024-09-21] MEDS: sodium chloride 0.9% 1,000 ML 75 ML IV (23:03)
[2024-09-21 23:17] LABS: Glucose Point of Care 186 mg/dL (70-110)
[2024-09-22 00:24] LABS: Estmated Average Glucose 235; Hemoglobin A1C 9.8 % (4.0-6.0)
[2024-09-22] MEDS: ketorolac 30 mg/mL INJ 15 MG IVP ×3 (01:12→20:38)
[2024-09-22] MEDS: morphine IR 15 mg Tablet PO (01:12)
[2024-09-22] MEDS: insulin lispro 100 unit/1 mL 15 UNIT SUBCUT (01:12)
[2024-09-22 04:00] VITALS: BP 146/79; PULSE 90; RESP 16; TEMP 36.4; O2SAT 91
[2024-09-22] MEDS: piperacillin-tazobactam 3.375 GM in sodium chloride 0.9% (plus) 50 ML IV ×3 (05:14→23:13)
[2024-09-22] MEDS: enoxaparin 40 mg/0.4 mL Syringe SUBCUT (05:14)
[2024-09-22 05:34] LABS: Basophils % 0.4 %; Eosinophils # 0.1 10^3/uL (0.0-0.8); Eosinophils % 1.4 %; Hematocrit 30.4 % (37-53); Lymphocytes # 2.3 10^3/uL (0.8-4.8); Lymphocytes % 22.8 %; Mean Corpuscular HGB Conc 32.6 g/dL (30-55); Mean Corpuscular Hemoglobin 29.4 pg (27-33); Mean Corpuscular Volume 90.2 fl (82-101); Mean Platelet Volume 11.4 fL (7.4-10.4); Monocytes # 0.7 10^3/uL (0.2-0.9); Monocytes % 6.7 %; Neutrophils # 6.72 10^3/uL (1.8-7.7); Neutrophils % 68.3 %; Nucleated Red Blood Cells % 0 %; Platelet Count 247 10^3/cmm (157-399); Red Blood Count 3.37 10^6/uL (3.85-5.65); Red Cell Distribution Width 13.3 % (12.1-15.1); White Blood Count 9.85 10^3/uL (3.29-11.43)
[2024-09-22 05:54] LABS: Anion Gap 15.4 (5-19); Blood Urea Nitrogen 13 mg/dL (6-20); C Reactive Protein 196.2 mg/L (0.0-4.9); Calcium 8.6 mg/dL (8.5-10.5); Carbon Dioxide 24 mmol/L (22-29); Chloride 104 mmol/L (98-107); Creatinine Clr Calc Pharmacy 122.6691; Glomerular Filtration Rate 93.5 mL/min (90-130); Glucose 70 mg/dL (65-115); Magnesium 1.9 mg/dL (1.7-2.3); Osmolality Calculated 289 mOsm/kg (285-295); Phosphorus 3.3 mg/dL (2.5-4.5); Potassium 3.4 mmol/L (3.5-5.1); Sodium 140 mmol/L (136-145)
--- NOTE | 2024-09-22 06:04 | PHA.VACGOAL ---
Vancomycin Goal - Goal Vancomycin Goal:: 15-20 mg/L Vancomycin Indication:: Other (SEPSIS) - Therapy Current therapy:: Pip/Tazo Day of therpy:: Day [1]of [] . Actual body weight (kg): 85.774 kg - Data Labs: WBC 9.85 10^3/uL (3.29-11.43) 09/22/24 05:12 RBC 3.37 10^6/uL (3.85-5.65) L 09/22/24 05:12 Hgb 9.90 g/dL (11.27-16.99) L 09/22/24 05:12 Hct 30.4 % (37-53) L 09/22/24 05:12 MCV 90.2 fl (82-101) 09/22/24 05:12 MCH 29.4 pg (27-33) 09/22/24 05:12 MCHC 32.6 g/dL (30-55) 09/22/24 05:12 RDW 13.3 % (12.1-15.1) 09/22/24 05:12 Sodium 140 mmol/L (136-145) 09/22/24 05:12 Potassium 3.4 mmol/L (3.5-5.1) L 09/22/24 05:12 Chloride 104 mmol/L (98-107) 09/22/24 05:12 Carbon Dioxide 24 mmol/L (22-29) 09/22/24 05:12 Anion Gap 15.4 (5-19) 09/22/24 05:12 BUN 13 mg/dL (6-20) 09/22/24 05:12 Creatinine 0.9 mg/dL (0.7-1.2) 09/22/24 05:12 GFR Calculation 93.5 mL/min (90-130) 09/22/24 05:12 Treatment plan:: new consult Regimen:: New start vancomycin for cellulitis/sepsis. Received 1000 mg dose in ER. Started on maintenance dose of 1250 mg q12h.
[2024-09-22 06:21] LABS: Glucose Point of Care 98 mg/dL (70-110)
[2024-09-22 07:42] VITALS: BP 154/88; PULSE 93; RESP 17; TEMP 36.8; O2SAT 93
--- NOTE | 2024-09-22 08:14 | P.CONIM_ITS ---
Providers/Reason For Consult 2 Consulting Physician/Specialty*: Hospitalist Reason for Consult*: Left elbow swelling Attending Physician: Tonny Caputo MD Primary Care Provider: Segundo Henry MD History of Present Illness History of Present Illness Piyush Moise is a 39 year old male insulin-dependent diabetic swam in elbow symptoms for past couple days. Progressively and worse does not have any fevers at this point left arm is swollen and painful to move. Patient was started on IV antibiotics last night Review of Systems 2 Const: Reports: chills; Denies: fever(s) Eyes: Denies: change in vision ENMT: Denies: throat pain Card: Denies: chest pain Resp: Denies: dyspnea GI: Denies: abdominal pain Musc: Reports: extremity pain, extremity swelling, joint pain, joint swelling, joint redness, joint warmth, joint stiffness and limited range of motion Medications/Allergies Home Medications ?Medication ?Instructions ?Recorded ?Confirmed ?Last Taken ?Type atorvastatin 40 mg tablet 40 mg PO QPM 09/22/24 Unknown History blood-glucose meter,continuous 09/22/24 09/22/24 Unkn own History (FreeStyle Shanell 3 [place]) blood-glucose sensor (FreeStyle 09/22/24 09/22/24 Unk nown History Shanell 3 Plus Sensor device) doxycycline monohydrate 100 mg 100 mg PO Q12H 09/22/24 09/22/24 Unknown History tablet hydrocodone 5 mg-acetaminophen 325 1 tab PO Q6H PRN Pa in 09/22/24 09/22/24 Unknown History mg tablet losartan 50 mg tablet 50 mg PO DAILY 09/22/2409/04 Unknown History naproxen 500 mg tablet 500 mg PO Q12H PRN Pain 09/0409/22/24 Unknown History Allergies Allergy/AdvReac Type Severity Reaction Status Date / Time No Known Allergies Allergy Verified 09/21/24 19:08 Current Medications Generic Name Dose Route Start Last Admin Trade Name Freq PRN Reason Stop Dose Admin Enoxaparin Sodium 40 mg 09/22/24 06:00 09/22/24 05:14 Enoxaparin 40 Mg/0.4 Ml Syringe SUBCUT 40 mg Q24H CHRISTINA Administration Sodium Chloride 1,000 mls @ 75 mls/hr 09/21/24 22:30 09/21/24 23:03 Sodium Chloride 0.9% IV 75 mls/hr .[id number] CHRISTINA Administration Piperacillin Sod/Tazobactam 50 mls @ 12.5 mls/hr 09/22/24 06:00 09/22/24 05:14 Sod 3.375 gm/ Sodium Chloride IV 12.5 mls/hr Q8H CHRISTINA Administration Insulin Human Lispro 0 unit 09/22/24 08:00 09/22/24 07:27 Insulin Lispro 100 Unit/1 Ml SUBCUT Not Given WM&BEDTIME REPLACED BY [facility] Protocol Ketorolac Tromethamine 15 mg 09/21/24 22:25 09/22/24 01:12 Ketorolac 30 Mg/Ml Inj IVP 09/26/24 22:24 15 mg Q6H PRN Administration MODERATE PAIN Morphine Sulfate 15 mg 09/21/24 22:29 09/22/24 01:12 Morphine Ir 15 Mg Tablet PO 15 mg Q6H PRN Administration MODERATE PAIN PFSH Acute 2 PFSH: Medical History Type 1 diabetes mellitus Vitals/I&O/Wt Last Vital Signs Temp 98.2 F 09/22/24 07:42 Pulse 93 09/22/24 07:42 Resp 17 09/22/24 07:42 BP 154/88 09/22/24 07:42 Pulse Ox 93 09/22/24 07:42 O2 Del Method Room Air 09/22/24 07:42 09/21/24 09/22/24 09/22/24 22:59 06:59 14:59 Intake Total 2594.66 / 2594.66 730 / 3324.66 Balance 2594.66 / 2594.66 730 / 3324.66 Weight last 48 hrs Weight 189 lb 1.6 oz Weight 187 lb Weight 187 lb Physical Exam 2 Narrative: Left elbow and forearm significant swelling compared to the right side. Data 09/22/24 05:12 09/22/24 05:12 Micro: Microbiology 09/21/24 20:55 Blood Culture - Preliminary Blood SPECIMEN COLLECTED 09/21/24 21:00 Blood Culture - Preliminary Blood SPECIMEN COLLECTED A&P Assessment and plan (1) Cellulitis of left elbow: Will obtain an MRI to see if is any abscess. At this point we will continue IV antibiotics and continue to monitor and wait the MRI results. PDMP PDMP Reviewed: Not Reviewed Coding Level of Care Code Acute Code for [facility] Fwd Diagnoses Cellulitis of left elbow L03.114
[2024-09-22] MEDS: sennosides-docusate Tablet 1 TAB PO (08:37)
[2024-09-22] MEDS: vancomycin 1,250 MG/250 ML PIGGYBACK 166.67 MG IV ×2 (10:54→23:11)
[2024-09-22 11:03] LABS: Glucose Point of Care 265 mg/dL (70-110)
[2024-09-22 11:09] VITALS: BP 160/87; PULSE 99; RESP 16; TEMP 36.8; O2SAT 93
[2024-09-22] MEDS: insulin lispro 100 unit/1 mL SUBCUT ×3 (11:41→20:38)
[2024-09-22] MEDS: gadobenate dimeglumine 20 mL vial 18 ML IV (13:04)
[2024-09-22] MEDS: ondansetron 2 mg/ML SDV 2 mL 4 MG IVP (13:30)
--- NOTE | 2024-09-22 15:10 | P.PN_ITS ---
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 From there the swelling has significantly evolved down his arm and into his hands so much so that he had to take his wedding ring off due to the swelling. Denies history of gout, no history of alcoholism Vitals/I&O/Wt Last Vital Signs Temp 98.3 F 09/22/24 11:09 Pulse 99 09/22/24 11:09 Resp 16 09/22/24 11:09 BP 160/87 09/22/24 11:09 Pulse Ox 93 09/22/24 11:09 O2 Del Method Room Air 09/22/24 07:42 09/22/24 09/22/24 09/22/24 06:59 14:59 22:59 Intake Total 730 / 3324.66 50 / 50 Balance 730 / 3324.66 50 / 50 Weight last 48 hrs Weight 85.774 kg Weight 84.822 kg Weight 84.822 kg Physical Exam 2 Const: COMMON NORMALS: no acute distress and patient oriented x3 Resp: COMMON NORMALS: normal respiratory effort, No retractions, No use of accessory muscles and clear to auscultation bilaterally AUSCULTATION: clear to auscultation bilaterally Cardio: COMMON NORMALS: regular rate, regular rhythm, S1 normal heart sound present and S2 normal heart sound present RATE: regular rate RHYTHM: r egular rhythm HEART SOUNDS: S1 normal heart sound present and S2 normal heart sound present GI: COMMON NORMALS: Normal to inspection, nondistended, normoactive bowel sounds present and non-tender Extremity: COMMON NORMALS: no pedal edema Neuro: COMMON NORMALS: patient oriented x3 Psych: COMMON NORMALS: mental status grossly normal Skin: NARRATIVE SKIN EXAM: Swelling, erythema left elbow, extending down the arm, involving the hand Data 09/22/24 05:12 02/20/25 05:12 Micro: Microbiology 09/21/24 20:55 Blood Culture - Preliminary Blood SPECIMEN COLLECTED 09/21/24 21:00 Blood Culture - Preliminary Blood SPECIMEN COLLECTED A&P Assessment and plan (1) Type 1 diabetes mellitus: (2) Cellulitis of left elbow: (3) Sepsis: Plan Sepsis Failed outpatient treatment Source left elbow cellulitis with extension down to the forearm, hand, with swelling, erythema Criteria met with tachypnea, tachycardia leukocytosis MRI MR/MR elbow LT wo/w con [id number] IMPRESSION: 1. Diffuse extensive enhancing cellulitis with edema about the elbow. 2. No drainable fluid collections or abscess. 3. Small joint effusion with peripheral enhancement may be inflammatory or infectious. Recommend correlation for septic arthritis 4. No evidence of osteomyelitis Dr. Baez consulted Continue vancomycin and Zosyn Continue to clinically monitor Insulin-dependent diabetic Continue IV fluids along insulin with sliding scale Consistent carb diet DVT prophylaxis on board Full code PDMP PDMP Reviewed: Not Reviewed Attestations 2 Medical Necessity Statement*: Patient requires hospitalization for sepsis secondary to left elbow cellulitis Diagnoses Type 1 diabetes mellitus E10.9 Cellulitis of left elbow L03.114 Sepsis A41.9
[2024-09-22] MEDS: sodium chloride 0.9% 1,000 ML 75 ML IV (15:42)
[2024-09-22 15:48] LABS: Uric Acid 4.7 mg/dL (3.4-7.0)
[2024-09-22 16:00] VITALS: BP 155/78; PULSE 109; RESP 16; TEMP 37; O2SAT 89
[2024-09-22 16:09] LABS: Glucose Point of Care 427 mg/dL (70-110)
[2024-09-22 17:00] VITALS: PULSE 87; RESP 18; O2SAT 83
[2024-09-22 19:42] VITALS: BP 159/92; PULSE 103; RESP 17; TEMP 36.9; O2SAT 90
[2024-09-22 20:24] LABS: Glucose Point of Care 374 mg/dL (70-110)
--- NOTE | 2024-09-22 22:29 | MR_ITS ---
WS: [email or web address] EXAMINATION: MR elbow LT wo/w con [id number] ORDER DATE: 09/22/2024 12:14 PM COMPARISON: None. HISTORY: Septic elbow, cellulitis CONTRAST: None.None. TECHNIQUE: Axial T1, axial T2 fat sat, coronal T1, coronal proton density fat sat, coronal STIR, sagittal proton density fat sat, and axial fat sat 3D performed. After contrast, axial T1 fat sat, coronal T1 fat sat, and sagittal T1 fat sat were performed. FINDINGS: Small joint effusion. Peripheral enhancing joint effusion may be infectious or inflammatory. Recommend correlation for septic arthritis. No evidence of bony destruction or osteomyelitis Diffuse extensive enhancing cellulitis with skin thickening about the elbow extending into the intermuscular soft tissues. No evidence of drainable abscess or drainable fluid collection. T1 fatty bone marrow signal preserved in the bony structures. No evidence of acute osteomyelitis. Moderate degenerative arthritis with some areas of subchondral cystic change MR/MR elbow LT wo/w con [id number] IMPRESSION: 1. Diffuse extensive enhancing cellulitis with edema about the elbow. 2. No drainable fluid collections or abscess. 3. Small joint effusion with peripheral enhancement may be inflammatory or inf ectious. Recommend correlation for septic arthritis 4. No evidence of osteomyelitis
[2024-09-23] VITALS (17 sets, daily range): BP systolic 135–174; BP diastolic 61–99; PULSE 96–122; RESP 12–34; TEMP 36.5–37.4; O2SAT 90–98
[2024-09-23] MEDS: ondansetron 2 mg/ML SDV 2 mL 4 MG IVP ×2 (02:10→18:41)
[2024-09-23] MEDS: HYDROMORPHONE HCL 0.5 MG/0.5 ML INJ 0.4 MG IVP (02:23)
[2024-09-23 05:08] LABS: Basophils # 0.1 10^3/uL (0.0-0.1); Basophils % 0.8 %; Eosinophils # 0.1 10^3/uL (0.0-0.8); Eosinophils % 1.1 %; Hematocrit 34.2 % (37-53); Lymphocytes # 1.4 10^3/uL (0.8-4.8); Lymphocytes % 13.5 %; Mean Corpuscular HGB Conc 31.9 g/dL (30-55); Mean Corpuscular Hemoglobin 28.5 pg (27-33); Mean Corpuscular Volume 89.3 fl (82-101); Mean Platelet Volume 11.3 fL (7.4-10.4); Monocytes # 0.5 10^3/uL (0.2-0.9); Monocytes % 4.4 %; Neutrophils # 8.25 10^3/uL (1.8-7.7); Neutrophils % 79.8 %; Nucleated Red Blood Cells % 0 %; Platelet Count 308 10^3/cmm (157-399); Red Blood Count 3.83 10^6/uL (3.85-5.65); Red Cell Distribution Width 13.3 % (12.1-15.1); White Blood Count 10.32 10^3/uL (3.29-11.43)
[2024-09-23 05:28] LABS: Anion Gap 22.5 (5-19); Blood Urea Nitrogen 14 mg/dL (6-20); Calcium 9.1 mg/dL (8.5-10.5); Carbon Dioxide 18 mmol/L (22-29); Chloride 96 mmol/L (98-107); Creatinine Clr Calc Pharmacy 111.1583; Glomerular Filtration Rate 82.8 mL/min (90-130); Glucose 383 mg/dL (65-115); Osmolality Calculated 290 mOsm/kg (285-295); Potassium 4.5 mmol/L (3.5-5.1); Sodium 132 mmol/L (136-145)
[2024-09-23 05:34] LABS: C Reactive Protein 184.3 mg/L (0.0-4.9); Procalcitonin 0.17 ng/mL (0-0.5)
[2024-09-23] MEDS: ketorolac 30 mg/mL INJ 15 MG IVP ×2 (05:34→09:54)
[2024-09-23] MEDS: piperacillin-tazobactam 3.375 GM in sodium chloride 0.9% (plus) 50 ML IV ×3 (05:39→23:15)
[2024-09-23] MEDS: enoxaparin 40 mg/0.4 mL Syringe SUBCUT (05:39)
[2024-09-23 06:18] LABS: Glucose Point of Care 366 mg/dL (70-110)
[2024-09-23] MEDS: morphine IR 15 mg Tablet PO (06:18)
[2024-09-23] MEDS: vancomycin 1,250 MG/250 ML PIGGYBACK 166 MG IV (09:54)
--- NOTE | 2024-09-23 10:23 | XR_ITS ---
WS: [email or web address] Exam: XR chest 1V portable [id number] Date/Time of Exam: 09/23/2024 10:26 AM Reason For Exam: sob Comparison 07/21/2020. There is consolidation and atelectasis in the RIGHT lower lobe. LEFT lung is clear. Normal cardiomediastinal silhouette and regional bony elements. The lungs are fully expanded. XR/XR chest 1V portable [id number] IMPRESSION: 1. Atelectasis and probable consolidating infiltrate in the RIGHT lower lobe mo st likely indicating pneumonia.
--- NOTE | 2024-09-23 10:23 | XR_ITS ---
WS: [email or web address] Exam: XR KUB portable [id number] Date/Time of Exam: 09/23/2024 10:26 AM Reason For Exam: abdominal distention No bowel obstruction or pneumoperitoneum. No sign of organ enlargement. Calcification of the seminal vesicles noted. Bony structures are intact. XR/XR KUB portable [id number] IMPRESSION: 1. No acute finding.
[2024-09-23 10:43] LABS: Ketone (Acetest) Serum Negative (Negative)
[2024-09-23 10:52] LABS: Alanine Aminotransferase 11 U/L (0-41); Albumin Level 3.2 g/dL (3.5-5.2); Alkaline Phosphatase 144 U/L (40-130); Aspartate Amino Transferase 11 U/L (0-40); Globulin 2.7 g/dL (1.3-4.6); Lipase 17 U/L (13-60); Total Bilirubin 0.2 mg/dL (0.15-1.2); Total Protein 5.9 g/dL (6.6-8.7)
[2024-09-23 11:11] LABS: Glucose Point of Care 458 mg/dL (70-110)
[2024-09-23] MEDS: metoclopramide 5 mg/mL SDV 2 mL IVP (11:12)
[2024-09-23 11:19] LABS: ABG PCO2 25.2 mmHg (35-45); ABG PH Result 7.22 (7.35-7.45); Arterial Blood Gas Hematocrit 36.3 % (42-52); Blood Gas Allen Test Pos; Blood Gas Operator Identificat glc; Blood Gas Sample Site Radial, right; Blood Gas Sample Type Arterial; HCO3 ABG 10.2 mmol/L (22-26); PO2 ABG 84.1 mmHg (80.0-100.0)
[2024-09-23] MEDS: insulin lispro 100 unit/1 mL SUBCUT (11:35)
--- NOTE | 2024-09-23 11:48 | ECG_ITS ---
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1985 Requested By: Tonny Caputo Order Number: [id number] Mariangel MD: JAIMEE SCHWAB Measurements Intervals [place] Rate: 119 P: 65 WA: 162 QRS: 50 QRSD: 98 T: 64 QT: 315 QTc: 445 Interpretive Statements SINUS TACHYCARDIA POSSIBLE LEFT ATRIAL ENLARGEMENT [-0.1mV P-WAVE IN V1/V2] POSSIBLE INFERIOR MYOCARDIAL INFARCTION , PROBABLY OLD [30 ms Q WAVE IN II/aVF] ABNORMAL RHYTHM ECG Compared to ECG 07/21/2020 16:24:34 Myocardial infarct finding now present Electronically Signed On 09-27-2024 23:44:06 ASSEMBLER PING PONG TABLE by JAIMEE SCHWAB [id number]
[2024-09-23] MEDS: sodium bicarbonate 650 mg Tablet PO (12:23)
--- NOTE | 2024-09-23 13:54 | P.PN_ITS ---
Subjective 2 Subjective: Please still complaining of pain in his left arm. Arm is still swollen. Patient also took his socks off last night and this he had some breakdown on his foot. Did discuss this with the detective sergeant they are going to see him and see what is going on. Vitals/I&O/Wt Last Vital Signs Temp 98.0 F 09/23/24 11:20 Pulse 116 H 09/23/24 11:20 Resp 16 09/23/24 11:20 BP 174/99 09/23/24 11:20 Pulse Ox 94 09/23/24 11:20 O2 Del Method Room Air 09/23/24 11:20 O2 Flow Rate 5 09/23/24 08:00 09/22/24 09/23/24 09/23/24 22:59 06:59 14:59 Intake Total 958.75 / 780 / 2788.75 1121.25 / 1121.25 Balance 958.75 / 75 780 / 2788.75 1121.25 / 1121.25 Weight last 48 hrs Weight 192 lb 1.6 oz Weight 189 lb 1.6 oz Weight 187 lb Weight 187 lb Physical Exam 2 Narrative: Left arm still has swelling difficulty bending arm. MRI did not show any areas of fluid collection. Patient also had early stages of an ulcer on his foot. Will get podiatry to evaluate. Data 09/23/24 04:58 09/23/24 04:58 Micro: Microbiology 09/21/24 20:55 Blood Culture - Preliminary Blood NEGATIVE TO DATE 09/21/24 21:00 Blood Culture - Preliminary Blood NEGATIVE TO DATE A&P Assessment and plan (1) Cellulitis of left elbow: MRI did not show any areas of fluid collection to perform surgery on. At this point patient also had a lesion on his foot which podiatry evaluate. PDMP PDMP Reviewed: Not Reviewed Attestations 2 Medical Necessity Statement*: Per primary service Coding Level of Care Code Acute Code for [facility] Diagnoses Cellulitis of left elbow L03.114
[2024-09-23 14:50] LABS: Ketone (Acetest) Serum Positive (Negative)
[2024-09-23 14:57] LABS: Anion Gap 29.4 (5-19); Blood Urea Nitrogen 20 mg/dL (6-20); Carbon Dioxide 12 mmol/L (22-29); Chloride 93 mmol/L (98-107); Glomerular Filtration Rate 56.1 mL/min (90-130); Potassium 4.4 mmol/L (3.5-5.1); Sodium 130 mmol/L (136-145)
[2024-09-23 14:58] LABS: Calcium 9.1 mg/dL (8.5-10.5); Creatinine Clr Calc Pharmacy 79.3988; Glucose 367 mg/dL (65-115); Osmolality Calculated 288 mOsm/kg (285-295)
--- NOTE | 2024-09-23 15:45 | P.PN_ITS ---
Subjective 2 Subjective: Patient was seen this morning, he had nausea throughout the morning, he is sitting up in a chair, with nausea bag with bilious vomit no abdominal pain, denies any lightheadedness, no dizziness, he tells me that the oral pain medication is not helping, the nausea medication is not helping, discussed checking if he has developed diabetic ketoacidosis, ABG pH 7.22, ketones were negative, not discussed nausea control, IV fluids. Patient was examined throughout the afternoon multiple nausea medications, nausea was improving chest x-ray shows possibly aspiration pneumonia, is on antibiotics, KUB was unremarkable. Repeated BMP this afternoon, patient's blood sugar is 367, creatinine 1.4, anion gap was 29.4, bicarb was 12, ketones are now positive, will move patient down to ICU for diabetic ketoacidosis, placed on insulin drip Vitals/I&O/Wt Last Vital Signs Temp 98.0 F 09/23/24 11:20 Pulse 116 H 09/23/24 11:20 Resp 16 09/23/24 11:20 BP 174/99 09/23/24 11:20 Pulse Ox 94 09/23/24 11:20 O2 Del Method Room Air 09/23/24 11:20 O2 Flow Rate 5 09/23/24 08:00 09/23/24 09/23/24 09/23/24 06:59 14:59 22:59 Intake Total 780 / 2788.75 1121.25 / 1121.25 Balance 780 / 2788.75 1121.25 / 1121.25 Weight last 48 hrs Weight 87.135 kg Weight 85.774 kg Weight 84.822 kg Weight 84.822 kg Physical Exam 2 Const: COMMON NORMALS: no acute distress and patient oriented x3 Resp: COMMON NORMALS: normal respiratory effort, No retractions, No use of accessory muscles and clear to auscultation bilaterally AUSCULTATION: clear to auscultation bilaterally Cardio: COMMON NORMALS: regular rate, regular rhythm, S1 normal heart sound present and S2 normal heart sound present RATE: regular rate RHYTHM: r egular rhythm HEART SOUNDS: S1 normal heart sound present and S2 normal heart sound present GI: COMMON NORMALS: Normal to inspection, nondistended, normoactive bowel sounds present and non-tender Extremity: COMMON NORMALS: no pedal edema NARRATIVE EXTREMITY EXAM: Left hand swelling, left arm swelling, left elbow swelling significantly improved Neuro: COMMON NORMALS: patient oriented x3, CN's II-XII intact bilaterally and moves all extremities Psych: COMMON NORMALS: mental status grossly normal Skin: NARRATIVE SKIN EXAM: Left foot, area of erythema, Data 09/23/24 04:58 09/23/24 14:34 Micro: Microbiology 09/21/24 20:55 Blood Culture - Preliminary Blood NEGATIVE TO DATE 09/21/24 21:00 Blood Culture - Preliminary Blood NEGATIVE TO DATE A&P Assessment and plan (1) Type 1 diabetes mellitus: (2) Cellulitis of left elbow: (3) Sepsis: Plan Sepsis Failed outpatient treatment Source left elbow cellulitis with extension down to the forearm, hand, with swelling, erythema Criteria met with tachypnea, tachycardia leukocytosis MRI MR/MR elbow LT wo/w con [id number] IMPRESSION: 1. Diffuse extensive enhancing cellulitis with edema about the elbow. 2. No drainable fluid collections or abscess. 3. Small joint effusion with peripheral enhancement may be inflammatory or infectious. Recommend correlation for septic arthritis 4. No evidence of osteomyelitis Dr. Baez consulted Continue vancomycin and Zosyn Continue to clinically monitor Insulin-dependent diabetic -Nausea vomiting this morning, has developed diabetic ketoacidosis, anion gap 29.4, bicarb 12, ketones positive, pH 7.22 Will moved to ICU -Started on insulin drip -DKA protocol -Monitor blood sugars hourly -Once blood sugar is below 200, switch to D5 half-normal saline with 20 KCl -Currently on normal saline at 150 cc -Once anion gap is below 14, switch to subcu insulin -Nausea control Intractable nausea vomiting -Zofran, Reglan, promethazine -KUB Right foot, area of cellulitis -Consult podiatry Consistent carb diet DVT prophylaxis on board Full code Plan for today continue IV antibiotics for sepsis left elbow with cellulitis, consult podiatry for right lower extremity area of cellulitis, diabetic ketoacidosis, moved to ICU started on insulin drip, DKA protocol, spoke to podiatry PDMP PDMP Reviewed: Not Reviewed Attestations 2 Medical Necessity Statement*: Patient requires hospitalization for diabetic ketoacidosis, left elbow cellulitis, intractable nausea vomiting Diagnoses Type 1 diabetes mellitus E10.9 Cellulitis of left elbow L03.114 Sepsis A41.9
[2024-09-23] MEDS: potassium chloride ER 20 mEq Tablet PO (16:09)
[2024-09-23 16:31] LABS: Uric Acid 5.3 mg/dL (3.4-7.0)
[2024-09-23 16:35] LABS: Glucose Point of Care 369 mg/dL (70-110)
[2024-09-23] MEDS: sodium chloride 0.9% 1,000 ML 150 ML IV ×2 (17:19→21:43)
--- NOTE | 2024-09-23 17:21 | P.CONIM_ITS ---
Providers/Reason For Consult 2 Consulting Physician/Specialty*: Trevon Walters D.P.M./podiatry Reason for Consult*: Right foot plaque Attending Physician: Tonny Caputo MD Primary Care Provider: Segundo Henry MD History of Present Illness History of Present Illness Piyush Moise is a 39 year old male who is currently in [facility] but is being transferred to ICU for DKA and sepsis secondary to left elbow infection. Patient presented to the emergency department on 09/21/2024 with chief complaint of worsening left upper extremity pain. He was admitted to the hospital with worsening swelling, pain of left upper extremity. He does have a history of type 1 diabetes. During workup patient was found to have lesion to dorsum of right foot. Podiatry was consulted to evaluate and treat. In discussion with the patient in regards to the aforementioned lesion, he states that it has been present for 2 to 3 days. He has never had anything like this in the past. He denies any pain associated with the lesion. Patient is nauseous at bedside. Patient is also concerned about swelling and discoloration to left lower extremity. Review of Systems 2 General: Reports: 10 or more systems reviewed and unremarkable except in HPI and below Const: Denies: fever(s), chills, fatigue or malaise Eyes: Denies: change in vision ENMT: Denies: throat pain Card: Reports: swelling of feet/ankles; Denies: chest pain or palpitations Resp: Denies: dyspnea GI: Denies: abdominal pain, nausea or vomiting Musc: Reports: extremity swelling; Denies: limited range of motion Skin/Breast: Reports: dry skin, nail changes and change in hair Neuro: Reports: numbness in extremities and sensory changes Medications/Allergies Home Medications ?Medication ?Instructions ?Recorded ?Confirmed ?Last Taken ?Type atorvastatin 40 mg tablet 40 mg PO QPM 09/22/24 Unknown History blood-glucose meter,continuous 09/22/24 09/22/24 Unkn own History (FreeStyle Shanell 3 [place]) blood-glucose sensor (FreeStyle 09/22/24 09/22/24 Unk nown History Shanell 3 Plus Sensor device) doxycycline monohydrate 100 mg 100 mg PO Q12H 09/22/24 09/22/24 Unknown History tablet hydrocodone 5 mg-acetaminophen 325 1 tab PO Q6H PRN Pa in 09/22/24 09/22/24 Unknown History mg tablet losartan 50 mg tablet 50 mg PO DAILY 09/22/2409/04 Unknown History naproxen 500 mg tablet 500 mg PO Q12H PRN Pain 09/0409/22/24 Unknown History Allergies Allergy/AdvReac Type Severity Reaction Status Date / Time No Known Allergies Allergy Verified 09/21/24 19:08 Current Medications Generic Name Dose Route Start Last Admin [facility] Reason Stop Dose Admin Enoxaparin Sodium 40 mg 09/22/24 06:00 09/23/24 05:39 Enoxaparin 40 Mg/0.4 Ml Syringe SUBCUT 40 mg Q24H CHRISTINA Administration Hydromorphone HCl 0.4 mg 09/21/24 22:51 09/23/24 02:23 Hydromorphone Hcl 0.5 Mg/0.5 Ml Inj IVP 0.4 mg Q4H PRN Administration SEVERE PAIN Sodium Chloride 1,000 mls @ 150 mls/hr 09/21/24 22:30 09/23/24 17:19 Sodium Chloride 0.9% IV 150 mls/hr .Q6H40M CHRISTINA Administration Piperacillin Sod/Tazobactam 50 mls @ 12.5 mls/hr 09/22/24 06:00 09/23/24 14:19 Sod 3.375 gm/ Sodium Chloride IV 12.5 mls/hr Q8H CHRISTINA Administration Vancomycin HCl 1,250 mg in 250 mls @ 166.667 mls/hr 09/22/24 10:00 09/23/24 13:39 Vancocin IV Infused Q12H CHRISTINA Infusion Ketorolac Tromethamine 15 mg 09/21/24 22:25 09/23/24 09:54 Ketorolac 30 Mg/Ml Inj IVP 09/26/24 22:24 15 mg Q6H PRN Administration MODERATE PAIN Metoclopramide HCl 5 mg 09/23/24 10:22 09/23/24 11:12 Metoclopramide 5 Mg/Ml Sdv 2 Ml IVP 5 mg Q6H PRN Administration NAUSEA AND VOMITING Ondansetron HCl 4 mg 09/21/24 22:29 09/23/24 02:10 Ondansetron 2 Mg/Ml Sdv 2 Ml IVP 4 mg Q6H PRN Administration NAUSEA AND VOMITING Senna/Docusate Sodium 1 tab 09/22/24 09:00 09/23/24 09:29 Sennosides-Docusate Tablet PO Not Given DAILY CHRISTINA PFSH Acute 2 PFSH: Medical History Type 1 diabetes mellitus Vitals/I&O/Wt Last Vital Signs Temp 98.5 F 09/23/24 15:47 Pulse 114 H 09/23/24 15:47 Resp 16 09/23/24 11:20 BP 135/71 09/23/24 15:47 Pulse Ox 91 09/23/24 15:47 O2 Del Method Room Air 09/23/24 15:47 O2 Flow Rate 5 09/23/24 08:00 09/23/24 09/23/24 09/23/24 06:59 14:59 22:59 Intake Total 780 / 2788.75 1121.25 / 1121.25 Balance 780 / 2788.75 1121.25 / 1121.25 Weight last 48 hrs Weight 192 lb 1.6 oz Weight 189 lb 1.6 oz Weight 187 lb Weight 187 lb Physical Exam 2 Narrative: BELOW IS A FOCUSED LOWER EXTREMITY EXAM GENERAL: A&O x 3 VASCULAR: DP/PT pulses nonpalpable. Cap refill is intact to distal digits however, sluggish. Dependent rubor to left lower extremity DERMATOLOGICAL: Skin turgor and temperature is within normal limits. No interdigital maceration noted. Red pigmented annular scaly plaque to dorsal lateral aspect of right foot. No underlying fluctuance no surrounding erythema. No evidence of underlying abscess MUSCULOSKELETAL: Ankle joint and hindfoot range of motion within normal limits bilaterally. No tenderness with palpation of medial, lateral or anterior ankle bilaterally. No tenderness with palpation of lateral ankle ligaments bilaterally. No pain with palpation of midfoot bilaterally. 5/5 muscle strength in all 4 quadrants of the lower extremity when tested against resistance. No gross musculoskeletal deformities noted. NEUROLOGICAL: Neurological sensation to the affected foot and ankle is present through L4-S1 dermatomes with no hyper/hypoesthesias, negative Tinel or Valleix's sign Data 09/23/24 04:58 09/23/24 14:34 Micro: Microbiology 09/21/24 20:55 Blood Culture - Preliminary Blood NEGATIVE TO DATE 09/21/24 21:00 Blood Culture - Preliminary Blood NEGATIVE TO DATE A&P Assessment and plan (1) Tinea pedis of right foot: No visible cellulitis of right lower extremity. Patient does have what appears to be a ringworm fungal infection of dorsal aspect of right foot. Prescription for clotrimazole/betamethasone will be sent through to pharmacy for patient to apply to the area as directed. Recommend follow-up in the outpatient setting within 2 weeks of discharge. (2) Peripheral vascular disease: Patient does have dependent rubor. I will order arterial Doppler to evaluate for significant arterial compromise. Otherwise, this will act as a baseline for future reference. (3) Type 1 diabetes mellitus: Plan Tinea pedis and PVD. No acute surgical intervention by podiatry during this admission. I will round on patient to give update on arterial Doppler results and to follow-up on utilization of clotrimazole/betamethasone. PDMP PDMP Reviewed: Not Reviewed Coding Level of Care Code Acute Code for [facility] Diagnoses Tinea pedis of right foot B35.3 Peripheral vascular disease I73.9 Type 1 diabetes mellitus E10.9
[2024-09-23 18:41] LABS: Glucose Point of Care 478 mg/dL (70-110)
[2024-09-23] MEDS: INSULIN REGULAR IN 0.9 % NACL 100 UNIT/100 ML BAG 8.5 UNIT IV (18:44)
[2024-09-23 19:42] LABS: Glucose Point of Care 462 mg/dL (70-110)
[2024-09-23 20:45] LABS: Blood Urea Nitrogen 22 mg/dL (6-20); Calcium 8.9 mg/dL (8.5-10.5); Chloride 98 mmol/L (98-107); Glomerular Filtration Rate 48.1 mL/min (90-130); Glucose 466 mg/dL (65-115); Osmolality Calculated 302 mOsm/kg (285-295); Potassium 4.7 mmol/L (3.5-5.1); Sodium 134 mmol/L (136-145)
[2024-09-23 20:51] LABS: Anion Gap 34.8 (5-19)
[2024-09-23 20:57] LABS: Glucose Point of Care 395 mg/dL (70-110)
[2024-09-23 20:57] LABS: Carbon Dioxide 6 mmol/L (22-29)
[2024-09-23] MEDS: clotrimazole-betamethasone cream 15gm 1 APPLIC TOPICAL (21:05)
--- NOTE | 2024-09-23 21:47 | PC.NURSE ---
Fluids running in MAR but no fluids hanging in pt room. Hung 2300 normal saline early due to no fluids currently running.
[2024-09-23 22:16] LABS: Vancomycin Trough 33.5 ug/mL (10-15)
[2024-09-23 22:21] LABS: Glucose Point of Care 322 mg/dL (70-110)
[2024-09-23 23:04] LABS: Glucose Point of Care 279 mg/dL (70-110)
[2024-09-23 23:49] LABS: Blood Urea Nitrogen 21 mg/dL (6-20); Calcium 9.2 mg/dL (8.5-10.5); Carbon Dioxide 15 mmol/L (22-29); Chloride 101 mmol/L (98-107); Glomerular Filtration Rate 48.1 mL/min (90-130); Glucose 288 mg/dL (65-115); Osmolality Calculated 294 mOsm/kg (285-295); Sodium 135 mmol/L (136-145)
[2024-09-24] VITALS (54 sets, daily range): BP systolic 132–187; BP diastolic 79–102; PULSE 85–126; RESP 7–29; TEMP 36.6–37; O2SAT 90–95; BMI 26.2
[2024-09-24 00:18] LABS: Glucose Point of Care 221 mg/dL (70-110)
[2024-09-24] MEDS: D5-NS 0.45% + KCL 20 mEq 20 MEQ/1,000 ML BAG 100 MEQ IV ×2 (00:26→11:18)
[2024-09-24 01:25] LABS: Glucose Point of Care 164 mg/dL (70-110)
[2024-09-24] MEDS: INSULIN REGULAR IN 0.9 % NACL 100 UNIT/100 ML BAG 6 UNIT IV (01:50)
[2024-09-24 02:05] LABS: Glucose Point of Care 140 mg/dL (70-110)
[2024-09-24] MEDS: HYDROMORPHONE HCL 0.5 MG/0.5 ML INJ 0.4 MG IVP ×2 (02:40→11:26)
[2024-09-24] MEDS: ondansetron 2 mg/ML SDV 2 mL 4 MG IVP ×2 (02:47→11:23)
[2024-09-24 03:12] LABS: Glucose Point of Care 144 mg/dL (70-110)
[2024-09-24 04:08] LABS: Glucose Point of Care 176 mg/dL (70-110)
[2024-09-24 04:53] LABS: Basophils # 0.1 10^3/uL (0.0-0.1); Basophils % 0.5 %; Eosinophils % 0.1 %; Lymphocytes # 2.3 10^3/uL (0.8-4.8); Mean Corpuscular HGB Conc 31.6 g/dL (30-55); Mean Corpuscular Hemoglobin 28.6 pg (27-33); Mean Corpuscular Volume 90.7 fl (82-101); Mean Platelet Volume 12.1 fL (7.4-10.4); Neutrophils # 10.78 10^3/uL (1.8-7.7); Neutrophils % 75.7 %; Nucleated Red Blood Cells % 0 %; Platelet Count 294 10^3/cmm (157-399); Red Blood Count 3.53 10^6/uL (3.85-5.65); Red Cell Distribution Width 13.5 % (12.1-15.1); White Blood Count 14.23 10^3/uL (3.29-11.43)
[2024-09-24 05:04] LABS: Glucose Point of Care 198 mg/dL (70-110)
[2024-09-24 05:16] LABS: Blood Urea Nitrogen 22 mg/dL (6-20); Calcium 9.1 mg/dL (8.5-10.5); Carbon Dioxide 18 mmol/L (22-29); Chloride 105 mmol/L (98-107); Creatinine Clr Calc Pharmacy 85.5064; Glomerular Filtration Rate 61.1 mL/min (90-130); Glucose 164 mg/dL (65-115); Osmolality Calculated 291 mOsm/kg (285-295); Sodium 137 mmol/L (136-145)
[2024-09-24 05:24] LABS: Procalcitonin 0.44 ng/mL (0-0.5)
[2024-09-24 06:09] LABS: Glucose Point of Care 208 mg/dL (70-110)
[2024-09-24] MEDS: enoxaparin 40 mg/0.4 mL Syringe SUBCUT (06:11)
[2024-09-24] MEDS: piperacillin-tazobactam 3.375 GM in sodium chloride 0.9% (plus) 50 ML IV (06:12)
[2024-09-24] MEDS: metoclopramide 5 mg/mL SDV 2 mL IVP (06:31)
[2024-09-24 07:13] LABS: Glucose Point of Care 231 mg/dL (70-110)
[2024-09-24 07:55] LABS: Anion Gap 19.3 (5-19); Blood Urea Nitrogen 21 mg/dL (6-20); Carbon Dioxide 17 mmol/L (22-29); Chloride 106 mmol/L (98-107); Glomerular Filtration Rate 61.1 mL/min (90-130); Glucose 237 mg/dL (65-115); Osmolality Calculated 297 mOsm/kg (285-295); Potassium 4.3 mmol/L (3.5-5.1); Sodium 138 mmol/L (136-145)
[2024-09-24 08:08] LABS: Creatinine Clr Calc Pharmacy 84.8085
[2024-09-24 08:18] LABS: Glucose Point of Care 242 mg/dL (70-110)
[2024-09-24 09:12] LABS: Glucose Point of Care 270 mg/dL (70-110)
--- NOTE | 2024-09-24 09:51 | USR_ITS ---
PROCEDURE INFORMATION: Exam: US Duplex Left Upper Extremity Arteries Exam date and time: 09/24/2024 1:03 PM Age: 39 years old Clinical indication: Pain; Arm, lower; Left; Additional info: Swelling TECHNIQUE: Imaging protocol: Left Real-time ultrasound scan of the arteries of the left upper extremity with 2-D shaikh scale, color Doppler flow and spectral waveform analysis. COMPARISON: [place] [id number] 09/24/2024 12:51 PM FINDINGS: Left subclavian artery: No occlusion or significant stenosis. Normal waveform. Left axillary artery: No occlusion or significant stenosis. Normal waveform. Left brachial artery: No occlusion or significant stenosis. Normal waveform. Left radial artery: No occlusion or significant stenosis. Normal waveform. Left ulnar artery: No occlusion or significant stenosis. Normal waveform. Soft tissues: Unremarkable. US/[place] [id number] IMPRESSION: No occlusion or stenosis of the left upper extremity.
[2024-09-24 10:01] LABS: Erythrocyte Sedimentation Rate 71 mm/hr (0-10)
[2024-09-24 10:07] LABS: Glucose Point of Care 279 mg/dL (70-110)
[2024-09-24 11:12] LABS: Glucose Point of Care 297 mg/dL (70-110)
[2024-09-24] MEDS: scopolamine 1 mg PATCH 1 PATCH TRANSDERMA (11:19)
[2024-09-24] MEDS: clotrimazole-betamethasone cream 15gm 1 APPLIC TOPICAL ×3 (11:29→20:34)
[2024-09-24] MEDS: meropenem 1,000 mg SDV 1000 MG IVP ×2 (11:29→18:06)
--- NOTE | 2024-09-24 11:54 | USR_ITS ---
PROCEDURE INFORMATION: Exam: US Duplex Left Upper Extremity Veins, Limited Exam date and time: 09/24/2024 12:51 PM Age: 39 years old Clinical indication: Edema, localized; Upper extremity, left; Additional info: Swelling TECHNIQUE: Imaging protocol: Real-time duplex ultrasound of the left extremity with 2-D shaikh scale, color Doppler flow and spectral waveform analysis including responses to compression and other maneuvers (when performed) with image documentation. Limited exam focused on the left upper extremity veins. COMPARISON: MR elbow LT wo/w con [id number] 09/22/2024 12:12 PM FINDINGS: Left deep veins: Left axillary vein does not completely coapt but has normal flow and augmentation. Brachial vein is patent throughout without thrombus. Normal Doppler waveforms. Normal compressibility and/or augmentation response of the brachial vein. Visualized internal jugular and subclavian veins are patent. Superficial veins: Unremarkable. Visualized cephalic and basilic veins are patent without thrombus. Radial and ulnar veins are without thrombus. Soft tissues: Unremarkable. US/[place] [id number] IMPRESSION: Limited evaluation of the left axillary vein which does not complete compress but has normal flow and augmentation. Otherwise normal exam.
[2024-09-24 11:57] LABS: Anion Gap 19.3 (5-19); Blood Urea Nitrogen 19 mg/dL (6-20); Carbon Dioxide 17 mmol/L (22-29); Chloride 100 mmol/L (98-107); Creatinine Clr Calc Pharmacy 78.7508; Glomerular Filtration Rate 56.1 mL/min (90-130); Glucose 333 mg/dL (65-115); Osmolality Calculated 289 mOsm/kg (285-295); Potassium 4.3 mmol/L (3.5-5.1); Sodium 132 mmol/L (136-145)
[2024-09-24 12:19] LABS: Glucose Point of Care 350 mg/dL (70-110)
[2024-09-24 13:09] LABS: Glucose Point of Care 327 mg/dL (70-110)
[2024-09-24] MEDS: cloNIDine 0.1 mg Tablet PO ×2 (13:33→17:45)
[2024-09-24] MEDS: lidocaine 1% 5 ML in potassium chloride premix 100 ML 52.5 ML IV (13:37)
--- NOTE | 2024-09-24 13:58 | P.PN_ITS ---
Subjective 2 Subjective: Patient states that his left hand is feeling better. Still having pain in his elbow pain Vitals/I&O/Wt Last Vital Signs Temp 98.2 F 09/24/24 04:00 Pulse 110 H 09/24/24 12:00 Resp 10 L 09/24/24 12:00 BP 165/92 09/24/24 13:33 Pulse Ox 90 09/24/24 12:00 O2 Del Method Nasal Cannula 09/24/24 12:00 O2 Flow Rate 2 09/24/24 12:00 09/23/24 09/24/24 09/24/24 22:59 06:59 14:59 Intake Total 745.267 / 1866.517 642.316 / 2508.833 1050 / 1050 Balance 745.267 / 1866.517 642.316 / 2508.833 1050 / 1050 Weight last 48 hrs Weight 188 lb 8 oz Weight 192 lb 1.6 oz Physical Exam 2 Narrative: Swelling in the hand was less than yesterday. Patient's symptoms seem to be improving. Data 09/24/24 03:16 09/24/24 11:14 A&P Assessment and plan (1) Cellulitis of left elbow: Continue current treatment patient symptoms seem to be improving. PDMP PDMP Reviewed: Not Reviewed Attestations 2 Medical Necessity Statement*: Per primary service Coding Level of Care Code Acute Code for [facility] Fwd Diagnoses Cellulitis of left elbow L03.114
[2024-09-24 14:07] LABS: Glucose Point of Care 286 mg/dL (70-110)
[2024-09-24 15:07] LABS: Glucose Point of Care 254 mg/dL (70-110)
[2024-09-24 15:30] LABS: Anion Gap 15.2 (5-19); Blood Urea Nitrogen 16 mg/dL (6-20); Calcium 8.8 mg/dL (8.5-10.5); Carbon Dioxide 19 mmol/L (22-29); Chloride 107 mmol/L (98-107); Creatinine Clr Calc Pharmacy 91.8759; Glomerular Filtration Rate 67.1 mL/min (90-130); Glucose 265 mg/dL (65-115); Osmolality Calculated 294 mOsm/kg (285-295); Potassium 4.2 mmol/L (3.5-5.1); Sodium 137 mmol/L (136-145)
[2024-09-24 16:15] LABS: Glucose Point of Care 223 mg/dL (70-110)
--- NOTE | 2024-09-24 17:14 | P.PN_ITS ---
Subjective 2 Subjective: Patient was seen this morning, currently in ICU on insulin drip, blood sugars in the 300s, anion gap remains elevated, denies any fevers does continue to complain of nausea, no abdominal pain continues to have severe pain in his left upper extremity, no fevers, no chills, he is frustrated about persistent pain in his left elbow, and swelling, discussed doing arterial ultrasound and venous ultrasounds, good radial ulnar pulses, discussed pain control, nausea control, discussed with family numbers at bedside Vitals/I&O/Wt Last Vital Signs Temp 98.6 F 09/24/24 15:27 Pulse 94 09/24/24 17:00 Resp 22 H 09/24/24 17:00 BP 149/87 09/24/24 17:00 Pulse Ox 91 09/24/24 13:00 O2 Del Method Nasal Cannula 09/24/24 12:00 O2 Flow Rate 2 09/24/24 12:00 09/24/24 09/24/24 09/24/24 06:59 14:59 22:59 Intake Total 642.316 / 2508.833 1050 / 1050 105 / 1155 Balance 642.316 / 2508.833 1050 / 1050 105 / 1155 Weight last 48 hrs Weight 85.502 kg Weight 87.135 kg Physical Exam 2 Const: COMMON NORMALS: no acute distress and patient oriented x3 Resp: COMMON NORMALS: normal respiratory effort, No retractions, No use of accessory muscles and clear to auscultation bilaterally AUSCULTATION: clear to auscultation bilaterally Cardio: COMMON NORMALS: regular rate, regular rhythm, S1 normal heart sound present and S2 normal heart sound present RATE: regular rate RHYTHM: r egular rhythm HEART SOUNDS: S1 normal heart sound present and S2 normal heart sound present GI: COMMON NORMALS: Normal to inspection, nondistended, normoactive bowel sounds present and non-tender Extremity: COMMON NORMALS: no pedal edema NARRATIVE EXTREMITY EXAM: Left upper extremity swelling, starting from mid biceps, extending down to the elbow, to the hands with swelling, erythema does complain of pain with range of motion of the elbow with swelling, erythema although improved compared to yesterday Neuro: COMMON NORMALS: patient oriented x3 Psych: COMMON NORMALS: mental status grossly normal Data 09/24/24 03:16 09/24/24 15:01 A&P Assessment and plan (1) Type 1 diabetes mellitus: (2) Cellulitis of left elbow: (3) Sepsis: Plan Sepsis Failed outpatient treatment Source left elbow cellulitis with extension down to the forearm, hand, with swelling, erythema Criteria met with tachypnea, tachycardia leukocytosis MRI MR/MR elbow LT wo/w con [id number] IMPRESSION: 1. Diffuse extensive enhancing cellulitis with edema about the elbow. 2. No drainable fluid collections or abscess. 3. Small joint effusion with peripheral enhancement may be inflammatory or infectious. Recommend correlation for septic arthritis 4. No evidence of osteomyelitis Dr. Baez consulted Back trough elevated at 33, switch to Zyvox Broaden antibiotic coverage to meropenem Continue to clinically monitor Insulin-dependent diabetic -Nausea vomiting this morning, has developed diabetic ketoacidosis, anion gap 29.4, bicarb 12, ketones positive, pH 7.22 Will moved to ICU -Started on insulin drip -DKA protocol -Monitor blood sugars hourly -Once blood sugar is below 200, switch to D5 half-normal saline with 20 KCl -Currently on normal saline at 150 cc -Once anion gap is below 14, switch to subcu insulin -Nausea control Intractable nausea vomiting -Zofran, Reglan, promethazine -KUB Right foot, area of cellulitis -Consult podiatry Consistent carb diet DVT prophylaxis on board Full code Plan for today continue IV antibiotics, pain control, nausea control, continue insulin drip, DKA protocol PDMP PDMP Reviewed: Not Reviewed Attestations 2 Medical Necessity Statement*: Patient requires hospitalization for sepsis secondary to left elbow cellulitis, diabetic ketoacidosis Coding Level of Care Code Critical Care >/= 30 minutes Critical care time (in minutes): 35 The high probability of a clinically significant, sudden or life threatening deterioration, as referenced in this documentation, required my full and direct attention, intervention and personal management. The critical care time shown is in addition to time spent performing any reported separately billable procedures and includes the following: [x] Data and vital sign review and interpretation [x ] Patient assessment, examination and intervention [x] Medication orders and management [x] Patient/Family updates as able [x] Care Coordination and Documentation. Diagnoses Type 1 diabetes mellitus E10.9 Cellulitis of left elbow L03.114 Sepsis A41.9
[2024-09-24] MEDS: HYDROMORPHONE HCL 0.5 MG/0.5 ML INJ 0.75 MG IVP (17:44)
--- NOTE | 2024-09-24 17:44 | USR_ITS ---
PROCEDURE INFORMATION: Exam: US Bilateral Noninvasive Physiologic Study of the Lower Extremity Arteries, Limited Exam date and time: 09/24/2024 12:35 PM Age: 39 years old Clinical indication: Other: Foot numbness; Additional info: Peripheral vascular disease TECHNIQUE: Imaging protocol: Bilateral Limited bilateral noninvasive physiologic studies of lower extremity arteries. Waveforms were obtained and evaluated. Images were documented and archived. Exam is limited. COMPARISON: No relevant prior studies available. FINDINGS: Right Ankle-Brachial Index: 1.0 Left Ankle-Brachial Index: 1.0 US/CV ankle brachial index [id number] IMPRESSION: Bilateral NIRALI of 1.0.
[2024-09-24] MEDS: sodium bicarbonate 650 mg Tablet PO ×2 (17:45→20:34)
[2024-09-24] MEDS: linezolid premix 600 MG/300 ML PREMIX 300 MG IV (17:46)
[2024-09-24] MEDS: insulin glargine 100 units/1 mL 15 UNIT SUBCUT (18:06)
[2024-09-24 18:24] LABS: Glucose Point of Care 167 mg/dL (70-110)
[2024-09-24 19:26] LABS: Glucose Point of Care 149 mg/dL (70-110)
[2024-09-24] MEDS: amlodipine 5 mg Tablet PO (20:34)
[2024-09-24] MEDS: insulin lispro 100 unit/1 mL SUBCUT (20:41)
[2024-09-24 21:05] LABS: Glucose Point of Care 166 mg/dL (70-110)
[2024-09-24] MEDS: ketorolac 30 mg/mL INJ 15 MG IVP (21:26)
[2024-09-24] MEDS: sodium chloride 0.9% 1,000 ML 125 ML IV (23:06)
[2024-09-25] VITALS (37 sets, daily range): BP systolic 128–169; BP diastolic 77–100; PULSE 83–100; RESP 10–28; TEMP 36.6–37.1; O2SAT 84–94
[2024-09-25] MEDS: HYDROMORPHONE HCL 0.5 MG/0.5 ML INJ 0.75 MG IVP (02:21)
[2024-09-25] MEDS: meropenem 1,000 mg SDV 1000 MG IVP ×3 (02:23→17:36)
[2024-09-25 04:46] LABS: Basophils # 0.1 10^3/uL (0.0-0.1); Basophils % 0.6 %; Eosinophils # 0.2 10^3/uL (0.0-0.8); Eosinophils % 1.9 %; Hematocrit 30.2 % (37-53); Lymphocytes # 1.9 10^3/uL (0.8-4.8); Lymphocytes % 20.2 %; Mean Corpuscular HGB Conc 32.1 g/dL (30-55); Mean Corpuscular Volume 90.4 fl (82-101); Monocytes # 0.5 10^3/uL (0.2-0.9); Monocytes % 5.8 %; Neutrophils # 6.59 10^3/uL (1.8-7.7); Neutrophils % 70.9 %; Nucleated Red Blood Cells % 0 %; Platelet Count 295 10^3/cmm (157-399); Red Blood Count 3.34 10^6/uL (3.85-5.65); Red Cell Distribution Width 13.6 % (12.1-15.1); White Blood Count 9.31 10^3/uL (3.29-11.43)
[2024-09-25 05:14] LABS: C Reactive Protein 90.9 mg/L (0.0-4.9)
[2024-09-25 05:20] LABS: Alanine Aminotransferase 8 U/L (0-41); Albumin Level 2.9 g/dL (3.5-5.2); Alkaline Phosphatase 121 U/L (40-130); Anion Gap 17.3 (5-19); Aspartate Amino Transferase 11 U/L (0-40); Blood Urea Nitrogen 13 mg/dL (6-20); Calcium 8.2 mg/dL (8.5-10.5); Carbon Dioxide 20 mmol/L (22-29); Chloride 105 mmol/L (98-107); Creatine Phosphokinase 73 U/L (39-308); Creatinine Clr Calc Pharmacy 122.5012; Globulin 2.4 g/dL (1.3-4.6); Glomerular Filtration Rate 93.5 mL/min (90-130); Glucose 253 mg/dL (65-115); Osmolality Calculated 295 mOsm/kg (285-295); Potassium 4.3 mmol/L (3.5-5.1); Sodium 138 mmol/L (136-145); Total Bilirubin 0.2 mg/dL (0.15-1.2); Total Protein 5.3 g/dL (6.6-8.7)
[2024-09-25 05:22] LABS: Procalcitonin 0.24 ng/mL (0-0.5)
[2024-09-25] MEDS: enoxaparin 40 mg/0.4 mL Syringe SUBCUT (05:26)
[2024-09-25] MEDS: linezolid premix 600 MG/300 ML PREMIX 300 MG IV ×2 (05:26→17:35)
[2024-09-25 06:52] LABS: Glucose Point of Care 308 mg/dL (70-110)
[2024-09-25] MEDS: sodium chloride 0.9% 1,000 ML 125 ML IV (07:30)
[2024-09-25] MEDS: sodium bicarbonate 650 mg Tablet PO (08:40)
[2024-09-25] MEDS: cloNIDine 0.1 mg Tablet PO ×2 (08:40→17:36)
[2024-09-25] MEDS: amlodipine 5 mg Tablet PO (08:40)
[2024-09-25] MEDS: clotrimazole-betamethasone cream 15gm 1 APPLIC TOPICAL ×3 (08:41→20:55)
[2024-09-25] MEDS: insulin lispro 100 unit/1 mL SUBCUT ×4 (08:41→20:54)
[2024-09-25 12:02] LABS: Glucose Point of Care 249 mg/dL (70-110)
--- NOTE | 2024-09-25 12:54 | P.PN_ITS ---
Subjective 2 Subjective: Pain improving still swelling is decreased patient is able to start bending his elbow now Vitals/I&O/Wt Last Vital Signs Temp 98.6 F 09/25/24 08:30 Pulse 100 09/25/24 12:30 Resp 16 09/25/24 12:30 BP 152/89 09/25/24 12:30 Pulse Ox 91 09/25/24 12:30 O2 Del Method Nasal Cannula 09/25/24 12:30 O2 Flow Rate 2 09/25/24 12:30 09/24/24 09/25/24 09/25/24 22:59 06:59 14:59 Intake Total 1894.500 / 2959.583 540 / 3499.583 1543.75 / 1543.75 Balance 1894.500 / 2959.583 540 / 3499.583 1543.75 / 1543.75 Weight last 48 hrs Weight 190 lb 11.198 oz Weight 188 lb 8 oz Physical Exam 2 Narrative: Significant decrease in swelling in the left arm patient is starting to bend his elbow Data 09/25/24 04:36 09/25/24 04:36 Micro: Microbiology 09/24/24 18:55 Blood Culture - Preliminary Blood SPECIMEN COLLECTED 09/24/24 18:50 Blood Culture - Preliminary Blood SPECIMEN COLLECTED A&P Assessment and plan (1) Cellulitis of left elbow: Plan Continue current treatment follow-up as needed PDMP PDMP Reviewed: Not Reviewed Attestations 2 Medical Necessity Statement*: Per primary service Coding Level of Care Code Acute Code for [facility] Fwd Diagnoses Cellulitis of left elbow L03.114
[2024-09-25] MEDS: insulin glargine 100 units/1 mL 20 UNIT SUBCUT (14:46)
[2024-09-25 14:48] LABS: Glucose Point of Care 194 mg/dL (70-110)
[2024-09-25] MEDS: ketorolac 30 mg/mL INJ 15 MG IVP ×2 (15:12→23:18)
[2024-09-25 17:08] LABS: Glucose Point of Care 222 mg/dL (70-110)
--- NOTE | 2024-09-25 17:17 | P.PN_ITS ---
Subjective 2 Subjective: Patient was seen this morning, he tells me significantly feels better, the range of motion, swelling erythema in his hand and arm elbow and shoulder are significant proved he is still having some minimal tenderness in the left elbow but improved, no fevers, chills he tells me he takes 70/30 Novolin 25 units twice daily, with an insulin sliding scale at home Vitals/I&O/Wt Last Vital Signs Temp 98.8 F 09/25/24 16:00 Pulse 87 09/25/24 16:00 Resp 20 H 09/25/24 16:00 BP 147/86 09/25/24 16:00 Pulse Ox 90 09/25/24 16:00 O2 Del Method Room Air 09/25/24 16:00 O2 Flow Rate 2 09/25/24 12:30 09/25/24 09/25/24 09/25/24 06:59 14:59 22:59 Intake Total 540 / 3499.583 1543.75 / 1543.75 Balance 540 / 3499.583 1543.75 / 1543.75 Weight last 48 hrs Weight 86.5 kg Weight 85.502 kg Physical Exam 2 Const: COMMON NORMALS: no acute distress and patient oriented x3 Resp: COMMON NORMALS: normal respiratory effort, No retractions, No use of accessory muscles and clear to auscultation bilaterally AUSCULTATION: clear to auscultation bilaterally Cardio: COMMON NORMALS: regular rate, regular rhythm, S1 normal heart sound present and S2 normal heart sound present RATE: regular rate RHYTHM: r egular rhythm HEART SOUNDS: S1 normal heart sound present and S2 normal heart sound present GI: COMMON NORMALS: Normal to inspection, nondistended, normoactive bowel sounds present and non-tender Extremity: COMMON NORMALS: no pedal edema NARRATIVE EXTREMITY EXAM: Left hand erythema, swelling, diarrhea significantly improved he has good range of motion # Left elbow swelling erythema has significantly proved good range of motion, does seem at the forearm # Left bicep minimal erythema, swelling, tenderness not extending to the shoulder Neuro: COMMON NORMALS: patient oriented x3 Psych: COMMON NORMALS: mental status grossly normal Data 09/25/24 04:36 09/25/24 04:36 Micro: Microbiology 09/24/24 18:55 Blood Culture - Preliminary Blood SPECIMEN COLLECTED 09/24/24 18:50 Blood Culture - Preliminary Blood SPECIMEN COLLECTED A&P Assessment and plan (1) Type 1 diabetes mellitus: (2) Cellulitis of left elbow: (3) Sepsis: Plan Sepsis Failed outpatient treatment Source left elbow cellulitis with extension down to the forearm, hand, with swelling, erythema Criteria met with tachypnea, tachycardia leukocytosis MRI MR/MR elbow LT wo/w con [id number] IMPRESSION: 1. Diffuse extensive enhancing cellulitis with edema about the elbow. 2. No drainable fluid collections or abscess. 3. Small joint effusion with peripheral enhancement may be inflammatory or infectious. Recommend correlation for septic arthritis 4. No evidence of osteomyelitis Dr. Baez consulted Clinically improved Back trough elevated at 33, switch to Zyvox Broaden antibiotic coverage to meropenem Continue to clinically monitor Insulin-dependent diabetic -DKA resolved -Lantus 20 is twice daily -Insulin sliding scale Intractable nausea vomiting, resolved -Zofran, Reglan, promethazine -KUB Right foot, tinea pedis -Consult podiatry Consistent carb diet DVT prophylaxis on board Full code Plan for today continue IV antibiotics, pain control, nausea control, continue insulin PDMP PDMP Reviewed: Not Reviewed Attestations 2 Medical Necessity Statement*: Patient requires hospitalization for left elbow cellulitis, requiring IV antibiotics Diagnoses Type 1 diabetes mellitus E10.9 Cellulitis of left elbow L03.114 Sepsis A41.9
[2024-09-25 20:26] LABS: Glucose Point of Care 157 mg/dL (70-110)
[2024-09-26] MEDS: meropenem 1,000 mg SDV 1000 MG IVP ×2 (01:00→11:37)
[2024-09-26 04:00] VITALS: BP 173/94; PULSE 80; RESP 20; TEMP 37.1; O2SAT 96
[2024-09-26 04:28] LABS: Basophils # 0.1 10^3/uL (0.0-0.1); Basophils % 1.1 %; Eosinophils # 0.2 10^3/uL (0.0-0.8); Eosinophils % 2.9 %; Hematocrit 31.3 % (37-53); Lymphocytes # 2.5 10^3/uL (0.8-4.8); Lymphocytes % 40.6 %; Mean Corpuscular HGB Conc 31.6 g/dL (30-55); Mean Corpuscular Hemoglobin 29.2 pg (27-33); Mean Corpuscular Volume 92.3 fl (82-101); Monocytes # 0.5 10^3/uL (0.2-0.9); Monocytes % 8.3 %; Neutrophils # 2.83 10^3/uL (1.8-7.7); Neutrophils % 46.3 %; Nucleated Red Blood Cells % 0 %; Platelet Count 226 10^3/cmm (157-399); Red Blood Count 3.39 10^6/uL (3.85-5.65); Red Cell Distribution Width 13.5 % (12.1-15.1); White Blood Count 6.13 10^3/uL (3.29-11.43)
[2024-09-26 04:50] LABS: Alanine Aminotransferase 8 U/L (0-41); Albumin Level 2.6 g/dL (3.5-5.2); Alkaline Phosphatase 114 U/L (40-130); Aspartate Amino Transferase 13 U/L (0-40); Blood Urea Nitrogen 15 mg/dL (6-20); Calcium 8.7 mg/dL (8.5-10.5); Carbon Dioxide 23 mmol/L (22-29); Chloride 102 mmol/L (98-107); Creatinine Clr Calc Pharmacy 138.5069; Globulin 3.3 g/dL (1.3-4.6); Glomerular Filtration Rate 107.1 mL/min (90-130); Glucose 81 mg/dL (65-115); Osmolality Calculated 280 mOsm/kg (285-295); Sodium 135 mmol/L (136-145); Total Bilirubin 0.2 mg/dL (0.15-1.2); Total Protein 5.9 g/dL (6.6-8.7)
[2024-09-26 05:02] LABS: Anion Gap 13.5 (5-19); Potassium 3.5 mmol/L (3.5-5.1)
[2024-09-26 05:27] LABS: Glucose Point of Care 109 mg/dL (70-110)
[2024-09-26] MEDS: enoxaparin 40 mg/0.4 mL Syringe SUBCUT (05:40)
[2024-09-26] MEDS: linezolid premix 600 MG/300 ML PREMIX 300 MG IV (05:43)
[2024-09-26] MEDS: HYDROMORPHONE HCL 0.5 MG/0.5 ML INJ 0.75 MG IVP (06:38)
--- NOTE | 2024-09-26 06:53 | PC.NURSE ---
Pt request Lantus to be administered with breakfast this morning due to blood sugars being lower than when he normally takes it.
[2024-09-26 08:00] VITALS: BP 174/90; PULSE 81; RESP 16; TEMP 36.8; O2SAT 95
[2024-09-26 11:37] VITALS: BP 174/90
[2024-09-26] MEDS: sennosides-docusate Tablet 1 TAB PO (11:37)
[2024-09-26] MEDS: cloNIDine 0.1 mg Tablet PO (11:37)
[2024-09-26] MEDS: insulin lispro 100 unit/1 mL SUBCUT (11:37)
[2024-09-26] MEDS: amlodipine 5 mg Tablet PO (11:37)
[2024-09-26] MEDS: clotrimazole-betamethasone cream 15gm 1 APPLIC TOPICAL (11:38)
[2024-09-26 11:41] LABS: Glucose Point of Care 302 mg/dL (70-110)
--- NOTE | 2024-09-26 11:44 | PM.DCS ---
Discharge Providers Date of Admission: 09/21/24 20:37 Date of Discharge: September 26, 2024 Attending Provider at Admission: Jovan Simental MD Attending Provider at Discharge: Tonny Caputo MD Primary Care Provider: Segundo Henry MD Diagnoses at Discharge Discharge Diagnosis (1) Type 1 diabetes mellitus: Status: Acute (2) Cellulitis of left elbow: Status: Acute (3) Sepsis: Status: Acute Reason for Visit Reason for Visit: pain and inflamation.left elbow into muscle Hospital Course Hospital Course This is a 39-year-old male with a past medical history of insulin-dependent type 1 diabetes, who presents [facility] for left elbow swelling, erythema, tenderness, with failure of outpatient antibiotic. Patient was admitted to [facility] for left elbow cellulitis, with sepsis, orthopedic service was consulted, received broad-spectrum IV antibiotics MR/MR elbow LT wo/w con [id number] IMPRESSION: 1. Diffuse extensive enhancing cellulitis with edema about the elbow. 2. No drainable fluid collections or abscess. 3. Small joint effusion with peripheral enhancement may be inflammatory or infectious. Recommend correlation for septic arthritis 4. No evidence of osteomyelitis -Overall clinically improved -Remained afebrile, blood cultures so far remain unremarkable -On discharge erythema and swelling has significantly resolved in the hand, forearm, biceps, with good range of motion -Continues to have some erythema around the left elbow, although no significant tenderness, has improved range of motion -Advised to continue to monitor closely, if any significant worsening of back to the emergency room -Will be discharged on 10 days of Zyvox and Augmentin -Continue to keep area clean and dry if any drainage come back to the hospital Patient's hospitalization was complicated by diabetic ketoacidosis requiring ICU admission, insulin drip, overall clinically improved anion gap closed, transition to subcu insulin, on discharge he should resume his home insulin therapy of NovoLog sliding scale and Novolin 70/30 25 units twice daily, follow-up with primary care Physical Exam Const: COMMON NORMALS: no acute distress and patient oriented x3 Resp: COMMON NORMALS: normal respiratory effort, No retractions, No use of accessory muscles and clear to auscultation bilaterally AUSCULTATION: clear to auscultation bilaterally Cardio: COMMON NORMALS: regular rate, regular rhythm, S1 normal heart sound present and S2 normal heart sound present RATE: regular rate RHYTHM: regular rhythm HEART SOUNDS: S1 normal heart sound present and S2 normal heart sound present GI: COMMON NORMALS: Normal to inspection, nondistended, normoactive bowel sounds present, non-tender and No hepatosplenomegaly present PALPATION: Yes No hepatosplenomegaly present Extremity: COMMON NORMALS: no pedal edema Neuro: COMMON NORMALS: patient oriented x3 Psych: COMMON NORMALS: mental status grossly normal Discharge Data Studies Completed and Pending Completed Studies During Hospitalization Category Date Time Status XR KUB portable [id number] Routine Exams 09/23/24 10:23 Completed XR chest 1V portable [id number] Routine Exams 09/23/24 10:23 Completed XR elbow LT min 3V* [id number] Stat Exams 09/21/24 19:26 Completed MR elbow LT wo/w con [id number] Routine MRI 09/22/24 22:29 Completed CV ankle brachial index [id number] Routine Ultrasound 09/24/24 17:44 [place] [id number] Routine Ultrasound 09/24/24 11:54 Completed US arterial duplex upper extremity LT [CV arterial Ultrasound 09/24/24 09:51 [place] [id number]] Routine Pending at discharge Category Date Time Status Blood Culture Stat Lab 09/21/24 20:55 Results Blood Culture Stat Lab 09/24/24 18:55 Results Complete Blood Count w/Auto AM LABS Lab 09/27/24 04:00 Ordered Complete Blood Count w/Auto AM LABS Lab 09/28/24 04:00 Ordered Comprehensive Metabolic Panel AM LABS Lab 09/27/24 04:00 Ordered Radiology Impressions Elbow X-Ray 09/21/24 19:26 IMPRESSION: No acute skeletal findings. Elbow MRI 09/22/24 22:29 IMPRESSION: 1. Diffuse extensive enhancing cellulitis with edema about the elbow. 2. No drainable fluid collections or abscess. 3. Small joint effusion with peripheral enhancement may be inflammatory or infectious. Recommend correlation for septic arthritis 4. No evidence of osteomyelitis Chest X-Ray 09/23/24 10:23 IMPRESSION: 1. Atelectasis and probable consolidating infiltrate in the RIGHT lower lobe most likely indicating pneumonia. KUB X-Ray 09/23/24 10:23 IMPRESSION: 1. No acute finding. Duplex Scan Upper Extremity Artery 09/24/24 09:51 IMPRESSION: No occlusion or stenosis of the left upper extremity. Venous Duplex 09/24/24 11:54 IMPRESSION: Limited evaluation of the left axillary vein which does not complete compress but has normal flow and augmentation. Otherwise normal exam. Ankle Brachial Index 09/24/24 17:44 IMPRESSION: Bilateral NIRALI of 1.0. Laboratory Results WBC 6.13 10^3/uL (3.29-11.43) 09/26/24 02:58 RBC 3.39 10^6/uL (3.85-5.65) L 09/26/24 02:58 Hgb 9.90 g/dL (11.27-16.99) L 09/26/24 02:58 Hct 31.3 % (37-53) L 09/26/24 02:58 MCV 92.3 fl (82-101) 09/26/24 02:58 MCH 29.2 pg (27-33) 09/26/24 02:58 MCHC 31.6 g/dL (30-55) 09/26/24 02:58 RDW 13.5 % (12.1-15.1) 09/26/24 02:58 Plt Count 226 10^3/cmm (157-399) 09/26/24 02:58 MPV 12.0 fL (7.4-10.4) H 09/26/24 02:58 Neut % (Auto) 46.3 % 09/26/24 02:58 Lymph % (Auto) 40.6 % 09/26/24 02:58 [place] % (Auto) 8.3 % 09/26/24 02:58 Eos % (Auto) 2.9 % 09/26/24 02:58 Baso % (Auto) 1.1 % 09/26/24 02:58 Neut # (Auto) 2.83 10^3/uL (1.8-7.7) 09/26/24 02:58 Lymph # (Auto) 2.5 10^3/uL (0.8-4.8) 09/26/24 02:58 [place] # (Auto) 0.5 10^3/uL (0.2-0.9) 09/26/24 02:58 Eos # (Auto) 0.2 10^3/uL (0.0-0.8) 09/26/24 02:58 Baso # (Auto) 0.1 10^3/uL (0.0-0.1) 09/26/24 02:58 Nucleated RBC % (auto) 0 % 09/26/24 02:58 Nucleated RBCs # 0.0 /100WBC 09/26/24 02:58 ESR 71 mm/hr (0-10) H 09/24/24 03:16 Specimen Type Arterial 09/23/24 11:07 Sample Site Radial, right 09/23/24 11:07 ABG pH 7.22 (7.35-7.45) L 09/23/24 11:07 ABG pCO2 25.2 mmHg (35-45) L 09/23/24 11:07 ABG pO2 84.1 mmHg (80.0-100.0) 09/23/24 11:07 ABG HCO3 10.2 mmol/L (22-26) L 09/23/24 11:07 ABG Base Excess -16.0 mmol/L (-2.0-2.0) L 09/23/24 11:07 Todd Test Pos 09/23/24 11:07 Hematocrit 36.3 % (42-52) L 09/23/24 11:07 O2 Delivery Device roomair 09/23/24 11:07 Shelving Supervisor ID [email or web address] 09/23/24 11:07 Blood Gas Notified Time 09/23/24 11:07 Sodium 135 mmol/L (136-145) L 09/26/24 02:58 Potassium 3.5 mmol/L (3.5-5.1) 09/26/24 02:58 Chloride 102 mmol/L (98-107) 09/26/24 02:58 Carbon Dioxide 23 mmol/L (22-29) 09/26/24 02:58 Anion Gap 13.5 (5-19) 09/26/24 02:58 BUN 15 mg/dL (6-20) 09/26/24 02:58 Creatinine 0.8 mg/dL (0.7-1.2) 09/26/24 02:58 GFR Calculation 107.1 mL/min (90-130) 09/26/24 02:58 Glucose 81 mg/dL (65-115) 09/26/24 02:58 POC Glucose 302 mg/dL (70-110) H 09/26/24 11:33 Estimat Average Glucose 235 09/21/24 19:37 Hemoglobin A1c 9.8 % (4.0-6.0) H 09/21/24 19:37 Calculated Osmolality 280 mOsm/kg (285-295) L 09/26/24 02:58 Lactic Acid 1.4 mmol/L (0.5-2.2) 09/21/24 19:37 Uric Acid 5.3 mg/dL (3.4-7.0) 09/23/24 14:34 Calcium 8.7 mg/dL (8.5-10.5) 09/26/24 02:58 Phosphorus 3.3 mg/dL (2.5-4.5) 09/22/24 05:12 Magnesium 1.9 mg/dL (1.7-2.3) 09/22/24 05:12 Total Bilirubin 0.2 mg/dL (0.15-1.2) 09/26/24 02:58 Direct Bilirubin 0.20 mg/dL (0.00-0.30) 09/23/24 04:58 AST 13 U/L (0-40) 09/26/24 02:58 ALT 8 U/L (0-41) 09/26/24 02:58 Alkaline Phosphatase 114 U/L (40-130) 09/26/24 02:58 Creatine Kinase 73 U/L (39-308) 09/25/24 04:36 C-Reactive Protein 90.9 mg/L (0.0-4.9) H 09/25/24 04:36 Total Protein 5.9 g/dL (6.6-8.7) L 09/26/24 02:58 Albumin 2.6 g/dL (3.5-5.2) L 09/26/24 02:58 Globulin 3.3 g/dL (1.3-4.6) 09/26/24 02:58 Lipase 17 U/L (13-60) 09/23/24 04:58 Procalcitonin 0.24 ng/mL (0-0.5) 09/25/24 04:36 Vancomycin Trough 33.5 ug/mL (10-15) H* 09/23/24 21:42 Serum Ketones Positive (Negative) H 09/23/24 14:34 Vitals Last Vital Signs Temp 98.2 F 09/26/24 08:00 Pulse 81 09/26/24 08:00 Resp 16 09/26/24 08:00 BP 174/90 09/26/24 11:37 Pulse Ox 95 09/26/24 08:00 O2 Del Method Nasal Cannula 09/26/24 08:00 O2 Flow Rate 2 09/26/24 04:00 Discharge Plan Discharge Patient Disposition: Home Condition: Stable Prescriptions: New amlodipine [Norvasc] 10 mg tablet 10 mg PO DAILY 30 Days Qty: 30 0RF clonidine HCl 0.1 mg Tablet 0.1 mg PO BID PRN (Reason: sbp>180 or dbp>90) 30 Days Qty: 60 0RF linezolid [Zyvox] 600 mg tablet 600 mg PO BID 10 Days Qty: 20 0RF cefdinir 300 mg capsule 300 mg PO Q12H 10 Days Qty: 20 0RF insulin aspart U-100 [Novolog U-100 Insulin aspart] 100 unit/mL solution See Rx Instructions .ROUTE .COMPLEX Qty: 10 0RF Rx Instructions: inject, subcut, 3 times daily, after meals, based on sliding scale provided Novolin 70/30 U-100 Insulin 100 unit/mL (70-30) suspension 25 unit SUBCUT BID 30 Days Qty: 15 0RF Continued atorvastatin 40 mg tablet 40 mg PO QPM (DME) FreeStyle Shanell 3 Plus Sensor Device MISCELLANEOUS (DME) FreeStyle Shanell 3 Alcova Misc MISCELLANEOUS hydrocodone-acetaminophen 5-325 mg tablet 1 tab PO Q6H PRN (Reason: Pain) 5 Days Qty: 20 0RF Discontinued doxycycline monohydrate 100 mg tablet 100 mg PO Q12H naproxen 500 mg tablet 500 mg PO Q12H PRN (Reason: Pain) Discharge Orders: Discharge Order (Routine); Ordered 09/26/24 Ordered By: Tonny Caputo Referrals: Peng Baez DO [Physician] - 10/11/24 1:45 pm Segundo Henry MD [Primary Care Provider] - 09/28/24 1:30 pm Discharge Diet: Diabetic Discharge Activity: Resume usual activity Patient Instructions: Opioid Safety Activity Restrictions/Additional Instructions: -Continue your home insulin regimen Novolin, NovoLog -Please monitor your blood sugars closely -Monitor your blood sugars 3 times daily as after meals -Please record your blood sugars, and a blood sugar log -For your NovoLog -Please inject blood sugar after meals based on sliding scale provided -Do not inject insulin if you do not eat as hypoglycemia kills -This is a NovoLog sliding scale -Insulin sliding ?fingerstick? Insulin ?141-180?0 units/sq 181-220?2 units/sq ?221-260?4 units/sq ?261-300 6 units/sq ?301-350?8 units/sq ?351-400 10 units/sq ?401-450?12 units/sq >450? 14units/sq -If your blood sugar is greater than 500 go to the emergency room -If your blood sugar is less than 60 or at anytime you feel lightheaded or dizzy or diaphoretic or have chest palpitations check your blood sugar, and eat a hard candy or drink orange juice and go immediately to the emergency room -Remember hypoglycemia kills, so if his blood sugar is less than 60 we have to increase it by taking in a sugary meal such as a hard candy or orange juice and go to the emergency room -If you have any questions please call us where here to help -Please take antibiotic as prescribed -Please follow-up with Dr. Baez Discharge Attestations Time Spent in Discharge Care*: greater than 30 min Quality Metrics Clinical Quality Measures [ No reported AMI, CVA or VTE this stay] Coding Level of Care Code 87772 Total time (in minutes) for Discharge: 45 Diagnoses Type 1 diabetes mellitus E10.9 Cellulitis of left elbow L03.114 Sepsis A41.9
[2024-09-26 11:52] VITALS: BP 172/98; PULSE 91; RESP 16; TEMP 36.7; O2SAT 94
== END 2024-09-26 13:34 | disposition home or self-care (01) | DRG 872 ==
LOC: ER 20:34 → MEDSURG 22:04 → ICU 09-23 18:31 → MEDSURG 09-25 16:00
PROVIDERS: Admitting Provider Internal Medicine; Emergency Provider Physician Assistant; PCP Family Medicine; Visit Provider Family Medicine
DX: A41.9 Sepsis, unspecified organism (principal); E10.10 Type 1 diabetes mellitus with ketoacidosis without coma; L03.114 Cellulitis of left upper limb; D84.9 Immunodeficiency, unspecified; B35.3 Tinea pedis; E10.51 Type 1 diabetes mellitus with diabetic peripheral angiopathy without gangrene
CPT/HCPCS: 36415; 36416; 36600; 71045; 73080; 73223; 74018; 80048; 80053; 80076; 80202; 82009; 82550; 82803; 82962; 83036; 83605; 83690; 83735; 84100; 84145; 84550; 85025; 85651; 86140; 87040; 93005; 93922; 93925; 93931; 93971; 96365; 96367; 96372; 96374; 96375; 96376; 99285; J1171; J1650; J1815; J1885; J2020; J2185; J2270; J2405; J2543; J2765; J3370; J3480; J7030; J7050

== ENCOUNTER → 2024-10-11 12:47 | Outpatient (BNVA) | payer OTHER, MEDICAID, SELFPAY | PROVIDERS: PCP Family Medicine; Visit Provider Orthopaedic Surgery | DX: L03.114 Cellulitis of left upper limb (principal) | CPT/HCPCS: 73080 ==

== ENCOUNTER 2024-11-09 14:59 | Emergency (ER) | payer OTHER, SELFPAY ==
--- NOTE | 2024-11-09 15:00 | XR_ITS ---
WS: [id number] Exam: XR elbow LT min 3V* [id number] Date/Time of Exam: 11/09/2024 3:11 PM Reason For Exam: injury Comparison 10/11/2024. There is an avulsion fracture of the olecranon process. There is posterior separation of the fracture fragment. There is marked posterior soft tissue swelling. The joints remain intact. 3 mm metallic soft tissue foreign body seen in the anterior soft tissues along the lower humerus. XR/XR elbow LT min 3V* [id number] IMPRESSION: 1. avulsion fracture of the olecranon process with marked soft tissue swelling.
[2024-11-09 15:03] VITALS: BP 163/94; PULSE 105; RESP 17; TEMP 36.8; O2SAT 96; BMI 24.0
--- NOTE | 2024-11-09 15:17 | ED_ITS ---
HPI - Extremity Problem 2 General: Chief complaint: Extremity Injury, Upper Stated complaint: left elbow injury Time Seen by Provider: 11/09/24 15:06 Source: patient Mode of arrival: ambulatory Limitations: no limitations History of Present Illness: Patient is a 39-year-old male who presents emergency department complaining of left elbow pain and swelling just prior to arrival. 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 No associated symptoms such as fever, nausea/vomiting, or red streaking, however he states he does have a history of septic joint to the left elbow requiring hospitalization and IV antibiotics. Pain rated at a 4/10 at this time, nonradiating. No distal neurovascular symptoms reported. No trauma. Mild tachycardia during exam, otherwise vitals unremarkable. Patient is a type I diabetic. MD Complaint: joint swelling and joint pain Onset (ago): minute(s) Location: left and elbow Radiation: none Exacerbating factors: range of motion and palpation Associated symptoms: Reports no associated symptoms; Deny chest pain, fever(s) or rash Context: other (History of septic joint to left elbow) Related Data Home Medications ?Medication ?Instructions ?Recorded ?Confirmed atorvastatin 40 mg tablet 40 mg PO QPM 09/22/24 blood-glucose meter,continuous 09/22/24 11/09/24 (FreeStyle Shanell 3 Farina) blood-glucose sensor (FreeStyle 09/22/24 11/09/24 Shanell 3 Plus Sensor device) clonidine HCl 0.1 mg tablet 0.1 mg PO BID PRN HIGH BLO OD 11/09/24 11/09/24 PRESSURE Previous Rx's ?Medication ?Instructions ?Recorded hydrocodone 5 mg-acetaminophen 325 1 tab PO Q6H PRN Pa in 5 days #20 09/26/24 mg tablet tabs insulin aspart U-100 100 unit/mL See Rx Instructions . Route 09/26/24 subcutaneous solution (Novolog .COMPLEX #10 mL U-100 Insulin aspart) losartan 50 mg tablet 50 mg PO DAILY 30 days #30 t abs 09/26/24 Allergies Allergy/AdvReac Type Severity Reaction Status Date / Time No Known Allergies Allergy Verified 11/09/24 15:07 Review of Systems 2 General: Reports: 10 or more systems reviewed and unremarkable except in HPI and below Const: Denies: fever(s) or chills Card: Denies: chest pain Resp: Denies: dyspnea or productive cough GI: Denies: abdominal pain, nausea, vomiting or diarrhea : Denies: flank pain Musc: Reports: joint pain and joint swelling; Denies: neck pain, back pain, extremity pain, extremity swelling, joint redness, joint warmth, limited range of motion or muscle weakness Skin/Breast: Denies: rash Neuro: Denies: headache(s), numbness in extremities or weakness in extremities PFSH ED 2 PFSH: Medical History Type 1 diabetes mellitus Social History Smoking and tobacco/nicotine status: never used tobacco/nicotine Physical Exam 2 Const: COMMON NORMALS: no acute distress, patient oriented x3, no limitations, healthy appearing, alert and well nourished HENMT: COMMON NORMALS: normocephalic and atraumatic HEAD & SCALP: n ormocephalic and atraumatic Neck/C-Spine: COMMON NORMALS: full ROM, supple and no meningeal signs Resp: COMMON NORMALS: normal respiratory effort, No use of accessory muscles and clear to auscultation bilaterally AUSCULTATION: clear to auscultation bilaterally Cardio: COMMON NORMALS: regular rate and regular rhythm RATE: regular rate RHYTHM: regular rhythm Extremity: COMMON NORMALS: capillary refill normal NARRATIVE EXTREMITY EXAM: Large amount of swelling over left olecranon, tender to palpation. Range of motion limited secondary to pain and resistance at the left elbow. No red streaking or overlying skin changes noted. No warmth to the joint. Neuro: COMMON NORMALS: patient oriented x3, moves all extremities, no focal motor deficits and no sensory deficits noted SENSORIUM/ORIENTATION: Yes alert MENINGEAL SIGNS: Yes no meningeal signs Skin: COMMON NORMALS: no rashes or lesions noted GENERAL SKIN EXAM: no rashes or lesions noted Course 2 Vital Signs: Vital signs: Vital Signs Temperature 98.2 F 11/09/24 15:03 Pulse Rate 84 11/09/24 18:19 Respiratory Rate 20 H 11/09/24 16:07 Blood Pressure 151/88 11/09/24 18:19 Pulse Oximetry 98 11/09/24 18:19 Oxygen Delivery Me thod Room Air 11/09/24 15:03 MDM - Extremity (Nontraumatic) Medical Decision Making Patient presenting with atraumatic left elbow pain and swelling. Of note, recently was hospitalized for septic joint to that same left elbow. There is limited range of motion secondary to swelling, stating it felt locked up. On exam quite a bit of swelling to left olecranon, there is no redness or warmth to the joint however and no red streaking or any other signs of infection. Vitals have been stable. His lab work had no indications that there is an infectious process. On x-ray there is evidence of avulsion fracture to the left olecranon process that was not present with previous imaging of the left elbow. Suspect this is sequela from the previous infection, and I spoke with on-call orthopedist, Dr. Carrillo, who states to place in sling and refer. This is a Worker's Compensation case. With his lab work, he is type I diabetic and sugar notably high greater than 600 with electrolyte abnormalities. Was given insulin and fluids through IV and BMP was checked later and electrolytes had normalized and blood sugar 284. Told him to continue monitoring blood sugar at home and continue taking medications as prescribed. He will be called for orthopedic follow-up and as mentioned will be immobilized in a sling. All other questions and concerns addressed at this time, return precautions given to which she verbalized understanding. Medical Records I reviewed the patient's medical records. Lab Data I reviewed the patient's lab results. 11/09/24 15:24 11/09/24 17:27 Radiology Impressions Elbow X-Ray 11/09/24 15:00 IMPRESSION: 1. avulsion fracture of the olecranon process with marked soft tissue swelling. Laboratory Results WBC 7.53 10^3/uL (3.29-11.43) 11/09/24 15:24 RBC 4.19 10^6/uL (3.85-5.65) 11/09/24 15:24 Hgb 12.10 g/dL (11.27-16.99) 11/09/24 15:24 Hct 37.1 % (37-53) 11/09/24 15:24 MCV 88.5 fl (82-101) 11/09/24 15:24 MCH 28.9 pg (27-33) 11/09/24 15:24 MCHC 32.6 g/dL (30-55) 11/09/24 15:24 RDW 13.8 % (12.1-15.1) 11/09/24 15:24 Plt Count 259 10^3/cmm (157-399) 11/09/24 15:24 MPV 11.3 fL (7.4-10.4) H 11/09/24 15:24 Neut % (Auto) 71.7 % 11/09/24 15:24 Lymph % (Auto) 22.0 % 11/09/24 15:24 Nobles % (Auto) 5.3 % 11/09/24 15:24 Eos % (Auto) 0.3 % 11/09/24 15:24 Baso % (Auto) 0.4 % 11/09/24 15:24 Neut # (Auto) 5.40 10^3/uL (1.8-7.7) 11/09/24 15:24 Lymph # (Auto) 1.7 10^3/uL (0.8-4.8) 11/09/24 15:24 Nobles # (Auto) 0.4 10^3/uL (0.2-0.9) 11/09/24 15:24 Eos # (Auto) 0.0 10^3/uL (0.0-0.8) 11/09/24 15:24 Baso # (Auto) 0.0 10^3/uL (0.0-0.1) 11/09/24 15:24 Nucleated RBC % (auto) 0 % 11/09/24 15: Nucleated RBCs # 0.0 /100WBC 11/09/24 15:24 ESR 14 mm/hr (0-10) H 11/09/24 15:24 Sodium 137 mmol/L (136-145) 11/09/24 17:27 Potassium 4.2 mmol/L (3.5-5.1) 11/09/24 17:27 Chloride 101 mmol/L (98-107) 11/09/24 17:27 Carbon Dioxide 21 mmol/L (22-29) L 11/09/24 17:27 Anion Gap 19.2 (5-19) H 11/09/24 17:27 BUN 17 mg/dL (6-20) 11/09/24 17:27 Creatinine 1.0 mg/dL (0.7-1.2) 11/09/24 17:27 GFR Calculation 82.8 mL/min (90-130) L 11/09/24 17:27 Glucose 284 mg/dL (65-115) H 11/09/24 17:27 POC Glucose 346 mg/dL (70-110) H 11/09/24 17:04 Calculated Osmolality 296 mOsm/kg (285-295) H 11/09/24 17:27 Calcium 9.5 mg/dL (8.5-10.5) 11/09/24 17:27 Total Bilirubin 0.6 mg/dL (0.15-1.2) 11/09/24 15:24 AST 24 U/L (0-40) 11/09/24 15:24 ALT 28 U/L (0-41) 11/09/24 15:24 Alkaline Phosphatase 121 U/L (40-130) 11/09/24 15:24 C-Reactive Protein 3.9 mg/L (0.0-4.9) 11/09/24 15:24 Total Protein 7.6 g/dL (6.6-8.7) 11/09/24 15:24 Albumin 4.3 g/dL (3.5-5.2) 11/09/24 15:24 Globulin 3.3 g/dL (1.3-4.6) 11/09/24 15:24 All radiology interpretation(s) finalized by discharge Discharge Plan Discharge Patient Disposition: Home Clinical Impression: Closed fracture of left olecranon process Qualifiers: Encounter type: initial encounter Qualified Code(s): S52.022A - Displaced fracture of olecranon process without intraarticular extension of left ulna, initial encounter for closed fracture Condition: Stable Prescriptions: No Action atorvastatin 40 mg tablet 40 mg PO QPM (DME) FreeStyle Shanell 3 Plus Sensor Device MISCELLANEOUS (DME) FreeStyle Shanell 3 Farina Misc MISCELLANEOUS losartan 50 mg tablet 50 mg PO DAILY 30 Days Qty: 30 0RF hydrocodone-acetaminophen 5-325 mg tablet 1 tab PO Q6H PRN (Reason: Pain) 5 Days Qty: 20 0RF insulin aspart U-100 [Novolog U-100 Insulin aspart] 100 unit/mL solution See Rx Instructions .ROUTE .COMPLEX Qty: 10 0RF Rx Instructions: inject, subcut, 3 times daily, after meals, based on sliding scale provided clonidine HCl 0.1 mg tablet 0.1 mg PO BID PRN (Reason: HIGH BLOOD PRESSURE ) Discharge Orders: Discharge ED (Routine); Ordered 11/09/24 Ordered By: Trevon Alvarez Referrals: Segundo Henry MD [Primary Care Provider] - Patient Instructions: Elbow Fracture (ED) Activity Restrictions/Additional Instructions: Please follow-up with orthopedics. Keep the sling on for immobilization as we discussed. Take ibuprofen and Tylenol for pain continue taking your insulin at home and monitoring your blood sugar closely. Please return with any worsening of pain, fevers, red streaking, or any other concerns that you have. Print Language: Tajik Coding Level of Care Code ED Double Head Machine Operator for Adriana Condon
[2024-11-09 15:30] LABS: Basophils % 0.4 %; Eosinophils % 0.3 %; Hematocrit 37.1 % (37-53); Lymphocytes # 1.7 10^3/uL (0.8-4.8); Mean Corpuscular HGB Conc 32.6 g/dL (30-55); Mean Corpuscular Hemoglobin 28.9 pg (27-33); Mean Corpuscular Volume 88.5 fl (82-101); Mean Platelet Volume 11.3 fL (7.4-10.4); Monocytes # 0.4 10^3/uL (0.2-0.9); Monocytes % 5.3 %; Neutrophils % 71.7 %; Nucleated Red Blood Cells % 0 %; Platelet Count 259 10^3/cmm (157-399); Red Blood Count 4.19 10^6/uL (3.85-5.65); Red Cell Distribution Width 13.8 % (12.1-15.1); White Blood Count 7.53 10^3/uL (3.29-11.43)
[2024-11-09 15:38] LABS: Erythrocyte Sedimentation Rate 14 mm/hr (0-10)
[2024-11-09 15:51] LABS: Alanine Aminotransferase 28 U/L (0-41); Albumin Level 4.3 g/dL (3.5-5.2); Alkaline Phosphatase 121 U/L (40-130); Anion Gap 16.1 (5-19); Aspartate Amino Transferase 24 U/L (0-40); Blood Urea Nitrogen 18 mg/dL (6-20); C Reactive Protein 3.9 mg/L (0.0-4.9); Calcium 9.7 mg/dL (8.5-10.5); Carbon Dioxide 25 mmol/L (22-29); Chloride 92 mmol/L (98-107); Creatinine Clr Calc Pharmacy 83.3269; Globulin 3.3 g/dL (1.3-4.6); Glomerular Filtration Rate 67.1 mL/min (90-130); Osmolality Calculated 299 mOsm/kg (285-295); Potassium 6.1 mmol/L (3.5-5.1); Sodium 127 mmol/L (136-145); Total Bilirubin 0.6 mg/dL (0.15-1.2); Total Protein 7.6 g/dL (6.6-8.7)
[2024-11-09 15:53] LABS: Glucose 697 mg/dL (65-115)
[2024-11-09 16:07] VITALS: BP 151/92; PULSE 99; RESP 20; O2SAT 99
[2024-11-09] MEDS: insulin regular-human 100 units/1 mL 10 UNIT IVP (16:11)
[2024-11-09] MEDS: sodium chloride 0.9% 1,000 ML 999 ML IV (16:12)
[2024-11-09 17:07] LABS: Glucose Point of Care 346 mg/dL (70-110)
[2024-11-09 17:49] LABS: Anion Gap 19.2 (5-19); Blood Urea Nitrogen 17 mg/dL (6-20); Calcium 9.5 mg/dL (8.5-10.5); Carbon Dioxide 21 mmol/L (22-29); Chloride 101 mmol/L (98-107); Creatinine Clr Calc Pharmacy 99.9922; Glomerular Filtration Rate 82.8 mL/min (90-130); Glucose 284 mg/dL (65-115); Osmolality Calculated 296 mOsm/kg (285-295); Potassium 4.2 mmol/L (3.5-5.1); Sodium 137 mmol/L (136-145)
[2024-11-09 18:19] VITALS: BP 151/88; PULSE 84; O2SAT 98
--- NOTE | 2024-11-09 18:21 | DCPLANNER ---
messaged ortho for er f/u
== END 2024-11-09 18:20 | disposition home or self-care (01) ==
PROVIDERS: Emergency Provider Physician Assistant; PCP Family Medicine
DX: S52.022A Displaced fracture of olecranon process without intraarticular extension of left ulna, initial encounter for closed fracture (principal); E10.9 Type 1 diabetes mellitus without complications; X58.XXXA Exposure to other specified factors, initial encounter
CPT/HCPCS: 36415; 36416; 73080; 80048; 80053; 82962; 85025; 85651; 86140; 96374; 99284; J1815; J7030

== ENCOUNTER → 2024-11-22 16:00 | Outpatient (BNVA) | payer OTHER, SELFPAY | PROVIDERS: PCP Family Medicine; Visit Provider Orthopaedic Surgery | DX: S52.022A Displaced fracture of olecranon process without intraarticular extension of left ulna, initial encounter for closed fracture (principal); X58.XXXA Exposure to other specified factors, initial encounter | CPT/HCPCS: 73080 ==

== ENCOUNTER 2024-11-28 13:27 | Outpatient (CLI) | payer OTHER, SELFPAY ==
--- NOTE | 2024-11-28 13:45 | MR_ITS ---
WS: [id number] EXAMINATION: MR elbow LT wo con* [id number] ORDER DATE: 11/28/2024 2:04 PM COMPARISON: Recent radiographs 11/09 and 11/22/2024 HISTORY: elbow fx TECHNIQUE: Axial T1, axial T2 fat sat, coronal T1, coronal proton density fat sat, coronal STIR, sagittal proton density fat sat, and axial fat sat 3D performed. After contrast, axial T1 fat sat, coronal T1 fat sat, and sagittal T1 fat sat were performed. FINDINGS: Some images degraded by patient motion. Again seen is the avulsion fracture of the dorsal olecranon. Associated dorsal soft tissue edema with joint effusion. Diffuse bone marrow edema involving the olecranon. Olecranon avulsed fragment involves the distal triceps insertion. Recommend correlation for triceps injury with avulsion. Fracture widening measures approximately 8.4 mm in maximum dimension. Normal bone marrow signal in the epicondyles and radial head considering patient motion. Slight T2 signal normality involving the capitellum with slight fragmentation. This has a chronic degenerative appearance. MR/MR elbow LT wo con* [id number] IMPRESSION: Exam is somewhat limited by patient motion and positioning. 1. Again seen is the dorsal displaced olecranon fracture with 8 mm of separati on similar to the prior radiographs. 2. Diffuse associated edema in the underlying olecranon with small joint effus ion. 3. The avulsed fragment appears to involve the majority of the distal triceps insertion. Recommend correlation for triceps injury or function. 4. No other acute findings considering motion artifact. 5. CT may be helpful if further bony detail is required.
== END 2024-11-28 13:28 | disposition home or self-care (01) ==
LOC: RAD 13:31
PROVIDERS: PCP Family Medicine; Visit Provider Orthopaedic Surgery
DX: S52.022D Displaced fracture of olecranon process without intraarticular extension of left ulna, subsequent encounter for closed fracture with routine healing (principal); X58.XXXD Exposure to other specified factors, subsequent encounter; R93.6 Abnormal findings on diagnostic imaging of limbs
CPT/HCPCS: 73221

== ENCOUNTER 2025-06-12 09:17 | Outpatient (CLI) | payer MEDICAID, SELFPAY ==
--- NOTE | 2025-06-12 09:22 | XR_ITS ---
WS: [id number] Exam: XR foot RT min 3V* [id number] Date/Time of Exam: 06/12/2025 9:23 AM Reason For Exam: R FOOT PAIN There is fracture deformity of the posterior calcaneus with loss of calcaneal angle. Fracture age difficult to determine. No other fractures of the foot are noted. The remaining joints are relatively well-maintained. Soft tissues are unremarkable. XR/XR foot RT min 3V* [id number] IMPRESSION: 1. Fracture deformity of the posterior calcaneus. Fracture age difficult to det ermine. If the patient is clinically symptomatic in this region then recent fra cture is likely. Further evaluation with CT could be considered if thought to b e clinically necessary.
== END 2025-06-12 09:18 | disposition home or self-care (01) ==
PROVIDERS: PCP Family Medicine; Visit Provider Family Medicine
DX: M79.671 Pain in right foot (principal); S92.051A Displaced other extraarticular fracture of right calcaneus, initial encounter for closed fracture; X58.XXXA Exposure to other specified factors, initial encounter
CPT/HCPCS: 73630

== ENCOUNTER → 2025-07-04 10:57 | Outpatient (BNVA) | payer MEDICAID, SELFPAY | PROVIDERS: PCP Family Medicine; Visit Provider Podiatrist Foot & Ankle Surgery | DX: M19.171 Post-traumatic osteoarthritis, right ankle and foot (principal); S92.001P Unspecified fracture of right calcaneus, subsequent encounter for fracture with malunion; V29.99XD Rider (driver) (passenger) of other motorcycle injured in unspecified traffic accident, subsequent encounter | CPT/HCPCS: 73630; 99214 ==

== ENCOUNTER 2025-07-18 06:43 | Outpatient (CLI) | payer MEDICAID, SELFPAY ==
--- NOTE | 2025-07-18 07:15 | MR_ITS ---
WS: [id number] MRI RIGHT ANKLE WITHOUT CONTRAST. COMPARISON: Radiograph 07/04/2025 Multiplanar, multisequence imaging is performed without contrast. Subcortical cystic changes and marrow edema in the lateral talar process and the adjacent calcaneus. Signal is otherwise well maintained in the sinus Tarsi. Cartilage is preserved along the posterior subtalar joint. There is additional focal marrow edema in the peroneal tubercle. No edema within the distal tibia or fibula. Marked decrease in Boehler's angle of the calcaneus. Angle estimated at 12 degrees. No Unhealed fracture is evident. Enthesopathy at the Achilles tendon attachment. Mild tendinopathy in the distal Achilles tendon centered 3.3 cm above the insertion site. No full-thickness tear. Abnormal peroneal tendons beginning at the level of the fibular tip. Loss of the normal architecture of the tendons and the tendon sheath. There is increased T2 signal with loss of the normal tendon signal. There is also enlargement of the tendon sheath. Signal abnormality is most abnormal near the peroneal tubercle of the calcaneus. Peroneal tubercle is also abnormal with edema. Flexor houses longus and flexor digitorum longus are normal. Posterior tibialis tendon is abnormal. Tendon appears torn with loss of the normal architecture beginning at the level of the medial malleolus. Normal ankle syndesmosis. Anterior inferior and posterior inferior ligaments are intact. Mild increased T2 signal in the central anterior talofibular ligament but no acute tear. Posterior talofibular ligament is normal. Calcaneofibular ligament is not identified. Visualized spring ligament appears appropriate. Deltoid ligament appears appropriate. MR/MR ankle RT wo con* [id number] IMPRESSION: 1. Lateral hindfoot impingement. Subcortical cystic changes and edema in the l ateral talar process and the adjacent calcaneus. 2. Loss of the normal Boehler's angle of the calcaneus. Angle estimated at 12 degrees from a prior fracture. 3. Enlargement of the peroneal tubercle with edema. 4. Severe signal abnormality noted within the distal peroneal tendons and the peroneal tendon sheath. Loss of the normal morphology with marked enlargement a nd increased signal. This may be severe tendinopathy by suspect there are proba rosalee tendon tears also. Peroneal tendons and the sheath are being displaced by t he enlarged peroneal tubercle. 5. Abnormal posterior tibialis tendon. Loss of the normal morphology and highl y suspicious for complete tendon tear. 6. Calcaneofibular ligament is not identified.
== END 2025-07-18 06:44 | disposition home or self-care (01) ==
PROVIDERS: PCP Family Medicine; Visit Provider Podiatrist Foot & Ankle Surgery
DX: S82.851A Displaced trimalleolar fracture of right lower leg, initial encounter for closed fracture (principal); X58.XXXA Exposure to other specified factors, initial encounter; M76.811 Anterior tibial syndrome, right leg; M85.671 Other cyst of bone, right ankle and foot; R60.0 Localized edema; M89.371 Hypertrophy of bone, right ankle and foot
CPT/HCPCS: 73721

== ENCOUNTER → 2025-07-25 09:02 | Outpatient (BNVA) | payer MEDICAID, SELFPAY | PROVIDERS: PCP Family Medicine; Visit Provider Podiatrist Foot & Ankle Surgery | DX: M19.171 Post-traumatic osteoarthritis, right ankle and foot (principal); M76.821 Posterior tibial tendinitis, right leg; S92.001P Unspecified fracture of right calcaneus, subsequent encounter for fracture with malunion; X58.XXXD Exposure to other specified factors, subsequent encounter | CPT/HCPCS: 99214 ==